=== PATIENT | female | born 1975 | race Caucasian/White ===

== ENCOUNTER 2021-04-26 02:08 | Inpatient (IN) | payer OTHER ==
[2021-04-26] MEDS ORDERED: SODIUM CHLORIDE 0.9% 500 ML INFUS.BAG IV ONE (02:40)
[2021-04-26] MEDS ORDERED: ONDANSETRON 4 MG/2 ML VIAL IVPUSH ONE (02:40)
[2021-04-26] MEDS ORDERED: LACTATED RINGERS SOLUTION 1000 ML INFUS.BAG IV ONE ×2 (02:53→05:28)
[2021-04-26] MEDS ORDERED: PROCHLORPERAZINE INJECTION 10 MG/2 ML VIAL IVPB ONE (02:55)
[2021-04-26] MEDS ORDERED: FOLIC ACID INJECTION - 1 MG, THIAMINE HCL 100 MG, MULTIVIT INJECTION ADULT 10 ML in SOD... IVPB ONE (03:05)
[2021-04-26 03:06] LABS: HEMATOCRIT 39.6 % (32.4-45.2); MCH 33.7 pg (25.7-33.7); MCHC 35.5 g/dl (32.0-36.0); MEAN PLT VOLUME 7.6 fl (7.5-11.1); PLATELET COUNT 383 10^3/uL (134-434); RBC 4.17 M/mm3 (3.60-5.2); WHITE BLOOD COUNT 21.7 K/mm3 (4.0-10.0)
[2021-04-26 03:07] LABS: VENOUS BASE EXCESS 2.4 mmol/L (-2-2); VENOUS O2 SATURATION 81.9 % (70-80); VENOUS PCO2 26.5 mmHg (38-52); VENOUS PH 7.559 (7.310-7.410)
[2021-04-26] MEDS ORDERED: SUCRALFATE 1 GM TABLET (FP) PO ONE (03:14)
[2021-04-26 03:20] LABS: CHLORIDE 92 mmol/L (98-107); SODIUM 131 mmol/L (136-145)
[2021-04-26] MEDS ORDERED: MAGNESIUM SULF 50% (8.12 MEQ/2 ML-1 GM VIAL) IVPB ONE (03:21)
[2021-04-26 03:22] LABS: CALCIUM 8.8 mg/dL (8.5-10.1)
[2021-04-26 03:23] LABS: ALBUMIN 3.2 g/dl (3.4-5.0); ANION GAP 16 MMOL/L (8-16); BLOOD UREA NITROGEN 7.2 mg/dL (7-18); CO2 23 mmol/L (21-32); GLUCOSE,RANDOM 116 mg/dL (74-106); LIPASE 74 U/L (73-393); MAGNESIUM 1.6 mg/dL (1.8-2.4)
[2021-04-26] MEDS ORDERED: SUCRALFATE 1 GM TABLET (FP) ONE (03:25)
[2021-04-26 03:26] LABS: CREATININE 1.1 mg/dL (0.55-1.3); SGOT/AST 62 U/L (15-37); SGPT/ALT 49 U/L (13-61)
[2021-04-26 03:28] LABS: TOT PROT 7.7 g/dl (6.4-8.2)
[2021-04-26 03:29] LABS: ALK PHOS 134 U/L (45-117)
[2021-04-26 03:38] LABS: LACTIC ACID 3.6 mmol/L (0.4-2.0)
[2021-04-26] MEDS ORDERED: MAGNESIUM SULFATE IN WATER 2 GM/50 ML IVPB IVPB ONE (03:41)
[2021-04-26] MEDS ORDERED: KCL 10 MEQ IVPB 10 MEQ/100 ML INFUS.BAG IVPB ONE ×3 (03:42→06:23)
[2021-04-26] MEDS ORDERED: POTASSIUM CHLORIDE TABS 20 MEQ TABLET.ER (FP) PO ONE ×2 (04:13→04:23)
[2021-04-26] MEDS: KCL 10 MEQ IVPB 10 MEQ/100 ML INFUS.BAG IVPB SCH ×3 (04:19→06:35)
[2021-04-26 04:30] LABS: PH,URINE 5.5 (5.0-8.0); URINE APPEARANCE CLEAR; URINE BILIRUBIN NEGATIVE (NEGATIVE); URINE COLOR ORANGE; URINE GLUCOSE (UA) NEGATIVE (NEGATIVE); URINE KETONE NEGATIVE (NEGATIVE); URINE LEUK ESTERASE NEGATIVE (NEGATIVE); URINE NITRITE NEGATIVE (NEGATIVE); URINE PROTEIN NEGATIVE (NEGATIVE)
[2021-04-26 07:15] LABS: CALCIUM 7.7 mg/dL (8.5-10.1)
[2021-04-26 07:16] LABS: BLOOD UREA NITROGEN 7.3 mg/dL (7-18)
[2021-04-26 07:19] LABS: CREATININE 0.7 mg/dL (0.55-1.3)
[2021-04-26 07:20] LABS: BILIRUBIN,TOTAL 1.8 mg/dL (0.2-1)
[2021-04-26 07:29] LABS: ALBUMIN 2.5 g/dl (3.4-5.0)
[2021-04-26] MEDS ORDERED: SODIUM CHLORIDE 1,000 ML IV STA (13:06)
[2021-04-26] MEDS ORDERED: ONDANSETRON 4 MG/2 ML VIAL IVPUSH PRN (13:37)
[2021-04-26] MEDS ORDERED: CEFTRIAXONE 1,000 MG in DEXTROSE 5%-WATER - 50 ML IVPB SCH (13:45)
[2021-04-26] MEDS ORDERED: CEFTRIAXONE 1 GM in DEXTROSE 5%-WATER - 50 ML IVPB SCH ×2 (14:47→14:48)
[2021-04-26] MEDS ORDERED: cefTRIAXone SODIUM 1 GM VIAL ONE (14:56)
[2021-04-26] MEDS ORDERED: DEXTROSE 5%-WATER - 50 ML IVPB ONE (14:56)
[2021-04-26] MEDS: CEFTRIAXONE 1 GM in DEXTROSE 5%-WATER - 50 ML IVPB SCH (15:02)
[2021-04-26] MEDS: LACTATED RINGERS SOLUTION 1,000 ML IV SCH (17:00)
[2021-04-26] MEDS: ALBUTEROL SO4 HFA INHALER IH SCH (21:24)
[2021-04-26] MEDS: ACETAMINOPHEN 325 MG TABLET (FP) PO PRN (21:58)
[2021-04-27 08:33] LABS: BLOOD UREA NITROGEN 3.6 mg/dL (7-18); CALCIUM 7.6 mg/dL (8.5-10.1)
[2021-04-27 08:34] LABS: MAGNESIUM 1.8 mg/dL (1.8-2.4)
[2021-04-27 08:36] LABS: CREATININE 0.6 mg/dL (0.55-1.3)
[2021-04-27 08:37] LABS: PHOSPHOROUS 2.6 mg/dL (2.5-4.9)
[2021-04-27 08:39] LABS: ALBUMIN 2.1 g/dl (3.4-5.0)
[2021-04-27 08:41] LABS: BILIRUBIN,DIRECT 0.5 mg/dL (0.0-0.2)
[2021-04-27 08:44] LABS: TOT PROT 5.3 g/dl (6.4-8.2)
[2021-04-27 08:53] LABS: BASO % 0.7 % (0-2.0); EOS % 1.8 % (0-4.5); HEMATOCRIT 28.7 % (32.4-45.2); HEMOGLOBIN 9.8 GM/dL (10.7-15.3); LYMPH % 20.9 % (8-40); MCH 34.4 pg (25.7-33.7); MCHC 34.2 g/dl (32.0-36.0); MEAN CELL VOLUME 100.7 fl (80-96); MEAN PLT VOLUME 7.4 fl (7.5-11.1); MONO % 8.9 % (3.8-10.2); NEUT % 67.7 % (42.8-82.8); PLATELET COUNT 207 10^3/uL (134-434); RBC 2.85 M/mm3 (3.60-5.2); RDW 13.9 % (11.6-15.6); WHITE BLOOD COUNT 4.4 K/mm3 (4.0-10.0)
[2021-04-27] MEDS ORDERED: cefTRIAXone SODIUM 1 GM VIAL ONE (09:07)
[2021-04-27] MEDS ORDERED: DEXTROSE 5%-WATER - 50 ML IVPB ONE (09:07)
[2021-04-27] MEDS: ENOXAPARIN NA (PORCINE) 40 MG/0.4 ML DISP.SYRIN SQ SCH (09:09)
[2021-04-27] MEDS: CEFTRIAXONE 1 GM in DEXTROSE 5%-WATER - 50 ML IVPB SCH (09:09)
[2021-04-27] MEDS: ALBUTEROL SO4 HFA INHALER IH SCH ×2 (09:10→21:18)
[2021-04-27] MEDS: ACETAMINOPHEN 325 MG TABLET (FP) PO PRN (09:55)
[2021-04-27] MEDS ORDERED: MAGNESIUM 1GM/D5W 100ML - 100 ML IVPB IVPB ONE (12:20)
[2021-04-27] MEDS: LACTATED RINGERS SOLUTION 1,000 ML IV SCH (17:44)
[2021-04-27] MEDS ORDERED: diphenhydrAMINE HCL 25 MG CAPSULE (FP) PO ONE (22:27)
[2021-04-28] MEDS: ACETAMINOPHEN 325 MG TABLET (FP) PO PRN ×2 (05:50→20:30)
[2021-04-28] MEDS: LEVOTHYROXINE NA 25 MCG TABLET (FP) PO SCH (06:02)
[2021-04-28 08:30] LABS: BASO % 0.7 % (0-2.0); HEMATOCRIT 27.8 % (32.4-45.2); HEMOGLOBIN 9.7 GM/dL (10.7-15.3); LYMPH % 15.1 % (8-40); MCH 34.4 pg (25.7-33.7); MCHC 34.7 g/dl (32.0-36.0); MEAN CELL VOLUME 99.2 fl (80-96); MEAN PLT VOLUME 8.1 fl (7.5-11.1); MONO % 8.2 % (3.8-10.2); PLATELET COUNT 208 10^3/uL (134-434); RDW 13.6 % (11.6-15.6); WHITE BLOOD COUNT 5.5 K/mm3 (4.0-10.0)
[2021-04-28] MEDS ORDERED: cefTRIAXone SODIUM 1 GM VIAL ONE (09:14)
[2021-04-28] MEDS ORDERED: DEXTROSE 5%-WATER - 50 ML IVPB ONE (09:14)
[2021-04-28] MEDS: ENOXAPARIN NA (PORCINE) 40 MG/0.4 ML DISP.SYRIN SQ SCH (09:18)
[2021-04-28 09:21] LABS: BLOOD UREA NITROGEN 5.2 mg/dL (7-18); CALCIUM 7.7 mg/dL (8.5-10.1)
[2021-04-28 09:22] LABS: ALBUMIN 2.1 g/dl (3.4-5.0); MAGNESIUM 1.8 mg/dL (1.8-2.4)
[2021-04-28 09:24] LABS: CREATININE 0.7 mg/dL (0.55-1.3)
[2021-04-28 09:26] LABS: BILIRUBIN,TOTAL 0.6 mg/dL (0.2-1); TOT PROT 5.1 g/dl (6.4-8.2)
[2021-04-28] MEDS: CEFTRIAXONE 1 GM in DEXTROSE 5%-WATER - 50 ML IVPB SCH (09:26)
[2021-04-28] MEDS: LACTATED RINGERS SOLUTION 1,000 ML IV SCH (09:27)
[2021-04-28] MEDS: ALBUTEROL SO4 HFA INHALER IH SCH ×2 (09:27→21:21)
[2021-04-28] MEDS: PANTOPRAZOLE 40 MG TABLET PO SCH (10:54)
[2021-04-28] MEDS: MAG HYDROX/ALH/SMC/DPHA/LIDO 240 ML MOUTHWASH MM SCH ×3 (12:01→23:33)
[2021-04-28] MEDS ORDERED: SIMETHICONE 80 MG TAB.CHEW (FP) PO ONE (20:19)
[2021-04-28 21:47] VITALS: BMI 31.1
[2021-04-28] MEDS ORDERED: diphenhydrAMINE HCL 25 MG CAPSULE (FP) PO ONE (23:46)
[2021-04-29] MEDS: LACTATED RINGERS SOLUTION 1,000 ML IV SCH (00:46)
[2021-04-29] MEDS: LEVOTHYROXINE NA 25 MCG TABLET (FP) PO SCH (06:07)
[2021-04-29] MEDS: MAG HYDROX/ALH/SMC/DPHA/LIDO 240 ML MOUTHWASH MM SCH (06:39)
[2021-04-29] MEDS ORDERED: DEXTROSE 5%-WATER - 50 ML IVPB ONE (09:28)
[2021-04-29] MEDS ORDERED: cefTRIAXone SODIUM 1 GM VIAL ONE (09:28)
[2021-04-29 09:56] LABS: HEMATOCRIT 29.8 % (32.4-45.2); HEMOGLOBIN 10.3 GM/dL (10.7-15.3); MCH 34.6 pg (25.7-33.7); MCHC 34.5 g/dl (32.0-36.0); MEAN CELL VOLUME 100.2 fl (80-96); MEAN PLT VOLUME 8.5 fl (7.5-11.1); PLATELET COUNT 222 10^3/uL (134-434); RBC 2.97 M/mm3 (3.60-5.2); RDW 13.8 % (11.6-15.6); WHITE BLOOD COUNT 5.9 K/mm3 (4.0-10.0)
[2021-04-29] MEDS ORDERED: SIMETHICONE 80 MG TAB.CHEW (FP) PO PRN (09:56)
[2021-04-29] MEDS ORDERED: MAG HYDROX/AL HYDROX/SIMETH 30 ML UNIT-DOSE CUP PO PRN (09:57)
[2021-04-29] MEDS ORDERED: MECLIZINE HCL 25 MG TABLET (FP) PO PRN (09:57)
[2021-04-29] MEDS ORDERED: MULTIVITAMINS THER W-MINERALS COMBO TABLET (FP) PO SCH (10:00)
[2021-04-29] MEDS: CEFTRIAXONE 1 GM in DEXTROSE 5%-WATER - 50 ML IVPB SCH (10:00)
[2021-04-29] MEDS: PANTOPRAZOLE 40 MG TABLET PO SCH (10:01)
[2021-04-29] MEDS: ENOXAPARIN NA (PORCINE) 40 MG/0.4 ML DISP.SYRIN SQ SCH (10:02)
[2021-04-29] MEDS: ALBUTEROL SO4 HFA INHALER IH SCH (10:02)
[2021-04-29 10:47] LABS: BLOOD UREA NITROGEN 5.7 mg/dL (7-18)
[2021-04-29 10:50] LABS: BILIRUBIN,TOTAL 0.8 mg/dL (0.2-1)
[2021-04-29 10:51] LABS: ALBUMIN 2.5 g/dl (3.4-5.0); CALCIUM 8.1 mg/dL (8.5-10.1); TOT PROT 5.8 g/dl (6.4-8.2)
[2021-04-29 10:52] LABS: MAGNESIUM 1.6 mg/dL (1.8-2.4)
[2021-04-29 10:55] LABS: CREATININE 0.6 mg/dL (0.55-1.3); PHOSPHOROUS 2.8 mg/dL (2.5-4.9)
[2021-04-29 14:12] VITALS: BP 124/81; PULSE 84; TEMP 98.8
== END 2021-04-29 17:42 | disposition home or self-care (01) | DRG 422 ==
LOC: JER 02:08 → JERBED 04:17 → J6S 09:42
PROVIDERS: ADMIT Internal Medicine
DX: E87.2 Acidosis (principal); E43 Unspecified severe protein-calorie malnutrition; E86.0 Dehydration; E87.3 Alkalosis; E87.8 Other disorders of electrolyte and fluid balance, not elsewhere classified; F50.9 Eating disorder, unspecified; D72.829 Elevated white blood cell count, unspecified; E03.9 Hypothyroidism, unspecified; F17.210 Nicotine dependence, cigarettes, uncomplicated; J45.909 Unspecified asthma, uncomplicated; R11.2 Nausea with vomiting, unspecified; R42 Dizziness and giddiness; R53.1 Weakness; K76.0 Fatty (change of) liver, not elsewhere classified; Z68.31 Body mass index [BMI] 31.0-31.9, adult
CPT/HCPCS: 36415; 71046-TC-FY; 76705-TC; 80048; 80053; 80076; 81003; 82550; 82803; 82962; 83605; 83690; 83735; 84100; 84439; 84443; 84481; 84484; 84703; 85025; 85027; 87040; 87086; 93005; 93010; 97116-GP; 97161-GP; 99285-25; C9803; U0003; U0005

== ENCOUNTER 2021-11-04 11:19 | Emergency (ER) | payer OTHER ==
[2021-11-04 11:50] VITALS: BMI 31.4
[2021-11-04 12:20] VITALS: TEMP 98.6
[2021-11-04] MEDS ORDERED: ACETAMINOPHEN 1000 MG/100 ML BAG IVPB ONE (12:40)
[2021-11-04] MEDS ORDERED: FAMOTIDINE 20 MG/50 ML IVPB 20 MG/50 ML MG IVPB ONE ×2 (13:00→13:21)
[2021-11-04] MEDS ORDERED: MAG HYDROX/AL HYDROX/SIMETH 30 ML UNIT-DOSE CUP PO ONE (13:00)
[2021-11-04] MEDS ORDERED: MAG HYDROX/AL HYDROX/SIMETH 30 ML UNIT-DOSE CUP ONE (13:21)
[2021-11-04] MEDS ORDERED: ACETAMINOPHEN INJECTION 100 ML IVPB ONE (13:21)
[2021-11-04 13:25] LABS: PH,URINE 5.5 (5.0-8.0); URINE APPEARANCE CLOUDY; URINE BILIRUBIN 1+ (NEGATIVE); URINE COLOR DK YELLOW; URINE GLUCOSE (UA) NEGATIVE (NEGATIVE); URINE KETONE TRACE (NEGATIVE); URINE LEUK ESTERASE NEGATIVE (NEGATIVE); URINE NITRITE NEGATIVE (NEGATIVE); URINE PROTEIN TRACE (NEGATIVE)
[2021-11-04 13:27] LABS: HCG,QUALITATIVE URINE Negative
[2021-11-04 13:48] LABS: BASO % 0.3 % (0-2.0); HEMATOCRIT 36.2 % (32.4-45.2); HEMOGLOBIN 12.4 GM/dL (10.7-15.3); LYMPH % 13.3 % (8-40); MCH 34.2 pg (25.7-33.7); MCHC 34.3 g/dl (32.0-36.0); MEAN CELL VOLUME 99.6 fl (80-96); MEAN PLT VOLUME 7.2 fl (7.5-11.1); MONO % 9.4 % (3.8-10.2); PLATELET COUNT 276 10^3/uL (134-434); RBC 3.63 M/mm3 (3.60-5.2)
[2021-11-04 13:49] LABS: CALCIUM 8.5 mg/dL (8.5-10.1)
[2021-11-04 13:50] LABS: ALBUMIN 2.8 g/dl (3.4-5.0); BLOOD UREA NITROGEN 6.4 mg/dL (7-18)
[2021-11-04 13:53] LABS: CREATININE 0.5 mg/dL (0.55-1.3)
[2021-11-04 13:55] LABS: BILIRUBIN,TOTAL 0.6 mg/dL (0.2-1); TOT PROT 6.5 g/dl (6.4-8.2)
[2021-11-04] MEDS ORDERED: SODIUM CHLORIDE 0.9% 500 ML INFUS.BAG IV ONE (15:53)
[2021-11-04] MEDS ORDERED: ACETAMINOPHEN 325 MG TABLET (FP) ONE (19:07)
[2021-11-04] MEDS ORDERED: ACETAMINOPHEN 325 MG TABLET (FP) PO ONE (19:07)
[2021-11-04 19:19] VITALS: BP 139/89; PULSE 90
== END 2021-11-04 19:20 | disposition home or self-care (01) ==
LOC: JER 11:19
PROC: 3E0333Z Introduction of Anti-inflammatory into Peripheral Vein, Percutaneous Approach (ICD-10-PCS; principal; 2021-11-04)
PROC: 3E033GC Introduction of Other Therapeutic Substance into Peripheral Vein, Percutaneous Approach (ICD-10-PCS; 2021-11-04)
DX: R10.10 Upper abdominal pain, unspecified (principal)
CPT/HCPCS: 36415; 71045-TC-FY; 80053; 81003; 84443; 84484; 84703; 85025; 87086; 93005; 93010; 99285-25

== ENCOUNTER 2022-02-02 14:16 | Inpatient (IN) | payer OTHER ==
[2022-02-02] MEDS ORDERED: FOLIC ACID INJECTION - 1 MG, THIAMINE HCL 100 MG, MULTIVIT INJECTION ADULT 10 ML in SOD... IVPB ONE (16:49)
[2022-02-02 16:50] LABS: BASO % 0.2 % (0-2.0); HEMATOCRIT 35.8 % (32.4-45.2); HEMOGLOBIN 12.6 GM/dL (10.7-15.3); LYMPH % 8.4 % (8-40); MCHC 35.2 g/dl (32.0-36.0); MEAN CELL VOLUME 99.7 fl (80-96); MEAN PLT VOLUME 7.7 fl (7.5-11.1); MONO % 9.3 % (3.8-10.2); NEUT % 81.1 % (42.8-82.8); PLATELET COUNT 282 10^3/uL (134-434); RDW 15.9 % (11.6-15.6); WHITE BLOOD COUNT 9.5 K/mm3 (4.0-10.0)
[2022-02-02 17:20] LABS: CHLORIDE 100 mmol/L (98-107); SODIUM 136 mmol/L (136-145)
[2022-02-02 17:22] LABS: ALBUMIN 2.4 g/dl (3.4-5.0); ANION GAP 9 MMOL/L (8-16); CALCIUM 7.7 mg/dL (8.5-10.1); CO2 27 mmol/L (21-32); GLUCOSE,RANDOM 77 mg/dL (74-106)
[2022-02-02 17:25] LABS: CREATININE 0.6 mg/dL (0.55-1.3)
[2022-02-02 17:26] LABS: SGOT/AST 120 U/L (15-37)
[2022-02-02 17:29] LABS: ALK PHOS 157 U/L (45-117); BILIRUBIN,TOTAL 1.7 mg/dL (0.2-1)
[2022-02-02 18:10] LABS: BLOOD UREA NITROGEN 2.2 mg/dL (7-18); SGPT/ALT 45 U/L (13-61)
[2022-02-02 18:12] LABS: MAGNESIUM 1.8 mg/dL (1.8-2.4)
[2022-02-02 18:24] LABS: EPI CELLS >36 /uL (0-25.1); HYALINE CASTS 16 /uL (0-3.1); URINE APPEARANCE TURBID; URINE BILIRUBIN 2+ (NEGATIVE); URINE COLOR RED; URINE GLUCOSE (UA) NEGATIVE (NEGATIVE); URINE KETONE NEGATIVE (NEGATIVE); URINE LEUK ESTERASE 3+ (NEGATIVE); URINE NITRITE POSITIVE (NEGATIVE); URINE PROTEIN 1+ (NEGATIVE); URINE WBC 1070 /uL (0-25.8)
[2022-02-02 18:33] LABS: LIPASE < 10 U/L (73-393)
[2022-02-02] MEDS ORDERED: CEFTRIAXONE 1,000 MG in DEXTROSE 5%-WATER - 50 ML IVPB ONE (18:38)
[2022-02-02] MEDS ORDERED: CEFTRIAXONE 1 GM/50 ML BAG ONE (18:49)
[2022-02-02 18:53] LABS: URINE BACTERIA 80 /uL (0-1359); URINE RBC 18328 /uL (0-23.9); YEAST PRESENT (NEGATIVE)
[2022-02-02 20:34] LABS: INR 1.21 (0.83-1.09); PROTHROMBIN TIME (PATIENT) 13.9 SEC (9.7-13.0)
[2022-02-02 20:37] LABS: ACTIVATED PTT 21.5 SECONDS (25.2-36.5)
[2022-02-02 20:41] LABS: CHLORIDE 102 mmol/L (98-107); SODIUM 140 mmol/L (136-145)
[2022-02-02 20:43] LABS: ANION GAP 13 MMOL/L (8-16); CALCIUM 7.6 mg/dL (8.5-10.1); CO2 25 mmol/L (21-32); GLUCOSE,RANDOM 74 mg/dL (74-106)
[2022-02-02 20:47] LABS: CREATININE 0.4 mg/dL (0.55-1.3); PHOSPHOROUS 2.5 mg/dL (2.5-4.9)
[2022-02-02 20:55] LABS: BLOOD UREA NITROGEN 2.4 mg/dL (7-18)
[2022-02-02] MEDS ORDERED: POTASSIUM CHLORIDE ORAL LIQUID 20 MEQ/15 ML PO ONE (21:11)
[2022-02-02] MEDS ORDERED: MAGNESIUM 1GM/D5W - 1 GM/100 ML IVPB IVPB ONE ×2 (21:11→22:15)
[2022-02-02] MEDS ORDERED: POTASSIUM CHLORIDE ORAL LIQUID 20 MEQ/15 ML ONE (22:15)
[2022-02-02] MEDS ORDERED: MINERAL OIL/PETROLAT/WATER TOPICAL CREAM 454 GM JAR TP PRN (22:26)
[2022-02-02] MEDS ORDERED: KCL 10 MEQ IVPB 20 MEQ/200 ML INFUS.BAG IVPB ONE (23:15)
[2022-02-02] MEDS: KCL 10 MEQ IVPB 10 MEQ/100 ML INFUS.BAG IVPB SCH (23:30)
[2022-02-03] MEDS ORDERED: CEFTRIAXONE 1,000 MG in DEXTROSE 5%-WATER - 50 ML IVPB ONE (01:39)
[2022-02-03] MEDS: diphenhydrAMINE HCL 25 MG CAPSULE (FP) PO PRN ×2 (02:03→23:45)
[2022-02-03] MEDS: KCL 10 MEQ IVPB 10 MEQ/100 ML INFUS.BAG IVPB SCH ×4 (02:06→20:23)
[2022-02-03 04:16] VITALS: BMI 29.4
[2022-02-03] MEDS ORDERED: CEFTRIAXONE 1 GM in DEXTROSE 5%-WATER - 50 ML IVPB ONE (06:00)
[2022-02-03] MEDS ORDERED: PNEUMOC 20-VAL CONJ-DIP CRM/PF 0.5 ML SYRINGE IM ONE (10:00)
[2022-02-03 10:05] LABS: BASO % 0.3 % (0-2.0); EOS % 2.2 % (0-4.5); HEMATOCRIT 32.8 % (32.4-45.2); HEMOGLOBIN 11.5 GM/dL (10.7-15.3); LYMPH % 8.6 % (8-40); MEAN PLT VOLUME 7.6 fl (7.5-11.1); MONO % 10.5 % (3.8-10.2); NEUT % 78.4 % (42.8-82.8); PLATELET COUNT 237 10^3/uL (134-434); RBC 3.28 M/mm3 (3.60-5.2); RDW 15.5 % (11.6-15.6); WHITE BLOOD COUNT 8.5 K/mm3 (4.0-10.0)
[2022-02-03 10:32] LABS: CHLORIDE 104 mmol/L (98-107); SODIUM 139 mmol/L (136-145)
[2022-02-03 10:37] LABS: CALCIUM 7.6 mg/dL (8.5-10.1)
[2022-02-03 10:38] LABS: ALBUMIN 2.4 g/dl (3.4-5.0); ANION GAP 10 MMOL/L (8-16); CO2 25 mmol/L (21-32); GLUCOSE,RANDOM 89 mg/dL (74-106)
[2022-02-03 10:40] LABS: PHOSPHOROUS 2.3 mg/dL (2.5-4.9); SGPT/ALT 43 U/L (13-61)
[2022-02-03 10:41] LABS: CREATININE 0.5 mg/dL (0.55-1.3); SGOT/AST 98 U/L (15-37)
[2022-02-03 10:42] LABS: BILIRUBIN,TOTAL 1.2 mg/dL (0.2-1); TOT PROT 6.4 g/dl (6.4-8.2)
[2022-02-03 10:43] LABS: ALK PHOS 158 U/L (45-117)
[2022-02-03] MEDS: predniSONE 20 MG TABLET (UD) PO SCH (11:00)
[2022-02-03] MEDS: MULTIVITAMINS (DAILY MVI) TABLET (FP) PO SCH (11:00)
[2022-02-03] MEDS ORDERED: POTASSIUM CHLORIDE ORAL LIQUID 20 MEQ/15 ML PO ONE (16:19)
[2022-02-03] MEDS ORDERED: KETOROLAC TROMETHAMINE 30 MG/1 ML VIAL IVPUSH PRN (16:25)
[2022-02-03] MEDS ORDERED: NAPH,MB-DB/K PH,MBDB POWDER PACKET PO ONE (19:33)
[2022-02-04] MEDS: LIOTHYRONINE SODIUM 5 MCG TABLET PO SCH (07:01)
[2022-02-04] MEDS: predniSONE 20 MG TABLET (UD) PO SCH (11:03)
[2022-02-04] MEDS: MULTIVITAMINS (DAILY MVI) TABLET (FP) PO SCH (11:03)
[2022-02-04] MEDS: CEFTRIAXONE 1 GM in DEXTROSE 5%-WATER - 50 ML IVPB SCH (11:03)
[2022-02-04] MEDS: LACTOBACILLUS ACIDOPHILUS 1 TABLET PO SCH (12:33)
[2022-02-04 18:52] VITALS: RESP 18
[2022-02-04] MEDS: SIMETHICONE 80 MG TAB.CHEW (FP) PO PRN (21:42)
[2022-02-05] MEDS: LIOTHYRONINE SODIUM 5 MCG TABLET PO SCH (06:12)
[2022-02-05] MEDS ORDERED: predniSONE 20 MG TABLET (UD) PO SCH ×3 (07:22→07:30)
[2022-02-05] MEDS: CEFTRIAXONE 1 GM in DEXTROSE 5%-WATER - 50 ML IVPB SCH (11:51)
[2022-02-05] MEDS: THIAMINE HCL 200 MG/2 ML VIAL IVPB SCH (11:51)
[2022-02-05] MEDS: predniSONE 10 MG TABLET (UD) PO SCH (11:52)
[2022-02-05] MEDS: LACTOBACILLUS ACIDOPHILUS 1 TABLET PO SCH (11:52)
[2022-02-05] MEDS: FOLIC ACID 1 MG TABLET (FP) PO SCH (11:52)
[2022-02-05] MEDS: MULTIVITAMINS (DAILY MVI) TABLET (FP) PO SCH (11:52)
[2022-02-05 12:57] LABS: HEMOGLOBIN 10.5 GM/dL (10.7-15.3); MCH 34.7 pg (25.7-33.7); MCHC 33.8 g/dl (32.0-36.0); MEAN CELL VOLUME 102.6 fl (80-96); PLATELET COUNT 215 10^3/uL (134-434); RBC 3.02 M/mm3 (3.60-5.2); RDW 16.3 % (11.6-15.6); WHITE BLOOD COUNT 9.6 K/mm3 (4.0-10.0)
[2022-02-05 13:22] LABS: CALCIUM 7.3 mg/dL (8.5-10.1)
[2022-02-05 13:23] LABS: MAGNESIUM 1.7 mg/dL (1.8-2.4)
[2022-02-05 13:25] LABS: ALBUMIN 2.4 g/dl (3.4-5.0); BLOOD UREA NITROGEN 4.1 mg/dL (7-18)
[2022-02-05 13:26] LABS: CREATININE 0.5 mg/dL (0.55-1.3)
[2022-02-05 13:27] LABS: BILIRUBIN,TOTAL 0.5 mg/dL (0.2-1)
[2022-02-05 13:28] LABS: TOT PROT 6.2 g/dl (6.4-8.2)
[2022-02-05 13:29] LABS: PHOSPHOROUS 2.5 mg/dL (2.5-4.9)
[2022-02-05] MEDS: SODIUM CHLORIDE 1,000 ML IV SCH ×2 (13:33→22:54)
[2022-02-05] MEDS: diphenhydrAMINE HCL 25 MG CAPSULE (FP) PO PRN (13:36)
[2022-02-05 13:56] LABS: ERYTHROCYTE SEDIMENTATION RATE 22 mm/hr (0-20)
[2022-02-05] MEDS: SIMETHICONE 80 MG TAB.CHEW (FP) PO PRN (22:54)
[2022-02-06] MEDS: LIOTHYRONINE SODIUM 5 MCG TABLET PO SCH (06:02)
[2022-02-06] MEDS ORDERED: SODIUM CHLORIDE 500 ML IV STA (06:06)
[2022-02-06] MEDS: SODIUM CHLORIDE 1,000 ML IV SCH (08:32)
[2022-02-06] MEDS: CEFTRIAXONE 1 GM in DEXTROSE 5%-WATER - 50 ML IVPB SCH (11:16)
[2022-02-06] MEDS: THIAMINE HCL 200 MG/2 ML VIAL IVPB SCH (11:16)
[2022-02-06] MEDS: LACTOBACILLUS ACIDOPHILUS 1 TABLET PO SCH (11:17)
[2022-02-06] MEDS: predniSONE 10 MG TABLET (UD) PO SCH (11:17)
[2022-02-06] MEDS: MULTIVITAMINS (DAILY MVI) TABLET (FP) PO SCH (11:18)
[2022-02-06] MEDS: FOLIC ACID 1 MG TABLET (FP) PO SCH (11:18)
[2022-02-06 14:28] VITALS: BP 106/63; PULSE 93; TEMP 98.6
[2022-02-08] MEDS ORDERED: predniSONE 10 MG TABLET (UD) PO SCH (10:00)
[2022-02-09] MEDS ORDERED: predniSONE 20 MG TABLET (UD) PO SCH (10:00)
[2022-02-11] MEDS ORDERED: predniSONE 10 MG TABLET (UD) PO SCH (10:00)
[2022-02-14] MEDS ORDERED: predniSONE 5 MG TABLET (UD) PO SCH (10:00)
== END 2022-02-06 18:14 | disposition home or self-care (01) | DRG 424 ==
LOC: JER 14:16 → JERBED 18:45 → J5S 02-03 01:51
PROVIDERS: ADMIT Hospitalist; ATTEND Internal Medicine
DX: E03.9 Hypothyroidism, unspecified (principal); J45.909 Unspecified asthma, uncomplicated; L30.9 Dermatitis, unspecified; G62.1 Alcoholic polyneuropathy; N39.0 Urinary tract infection, site not specified; B95.8 Unspecified staphylococcus as the cause of diseases classified elsewhere; K59.00 Constipation, unspecified; E87.8 Other disorders of electrolyte and fluid balance, not elsewhere classified; E87.3 Alkalosis; D72.829 Elevated white blood cell count, unspecified
CPT/HCPCS: 0241U-QW; 36415; 70450-TC; 71045-TC-FY; 72131-TC; 76705-TC; 80048; 80053; 81003; 82140; 82550; 82607; 82746; 83690; 83735; 84100; 84132; 84439; 84443; 84479; 84481; 84591; 85025; 85027; 85610; 85651; 85730; 86038; 86140; 86376; 87077; 87086; 90677; 93005; 93010; 97116-GP; 97162-GP; 99285-25

== ENCOUNTER 2022-09-21 10:33 | Inpatient (IN) | payer OTHER ==
[2022-09-21] MEDS ORDERED: HYDROmorphone HCl 2 MG/ML VIAL IVPUSH ONE (11:30)
[2022-09-21] MEDS ORDERED: HYDROmorphone HCl 2 MG/ML VIAL ONE (12:00)
[2022-09-21 12:35] LABS: BASO % 0.4 % (0-2.0); EOS % 0.6 % (0-4.5); HEMOGLOBIN 12.1 GM/dL (10.7-15.3); LYMPH % 5.6 % (8-40); MCH 33.7 pg (25.7-33.7); MCHC 34.7 g/dl (32.0-36.0); MEAN CELL VOLUME 97.2 fl (80-96); MEAN PLT VOLUME 7.4 fl (7.5-11.1); MONO % 10.9 % (3.8-10.2); NEUT % 82.5 % (42.8-82.8); PLATELET COUNT 390 10^3/uL (134-434); RDW 14.8 % (11.6-15.6)
[2022-09-21 12:41] LABS: INR 1.32 (0.83-1.09); PROTHROMBIN TIME (PATIENT) 15.3 SEC (9.7-13.0)
[2022-09-21 12:53] LABS: CHLORIDE 99 mmol/L (98-107); SODIUM 136 mmol/L (136-145)
[2022-09-21 12:56] LABS: ALBUMIN 2.4 g/dl (3.4-5.0); CALCIUM 8.3 mg/dL (8.5-10.1); CO2 29 mmol/L (21-32); GLUCOSE,RANDOM 97 mg/dL (74-106); MAGNESIUM 2.1 mg/dL (1.8-2.4)
[2022-09-21 12:59] LABS: CREATININE 0.6 mg/dL (0.55-1.3); PHOSPHOROUS 2.2 mg/dL (2.5-4.9); SGPT/ALT 22 U/L (13-61)
[2022-09-21 13:00] LABS: SGOT/AST 65 U/L (15-37)
[2022-09-21 13:01] LABS: BILIRUBIN,TOTAL 2.8 mg/dL (0.2-1); TOT PROT 7.8 g/dl (6.4-8.2)
[2022-09-21 13:02] LABS: ALK PHOS 198 U/L (45-117)
[2022-09-21 13:18] LABS: ANION GAP 8 MMOL/L (8-16); BLOOD UREA NITROGEN 2.1 mg/dL (7-18)
[2022-09-21] MEDS ORDERED: POTASSIUM CHLORIDE ORAL LIQUID 20 MEQ/15 ML PO ONE (13:20)
[2022-09-21] MEDS ORDERED: POTASSIUM CHLORIDE ORAL LIQUID 20 MEQ/15 ML ONE (13:25)
[2022-09-21] MEDS: KCL 10 MEQ IVPB 10 MEQ/100 ML INFUS.BAG IVPB SCH ×3 (13:30→16:00)
[2022-09-21] MEDS ORDERED: KCL 10 MEQ IVPB 10 MEQ/100 ML INFUS.BAG IVPB ONE (15:53)
[2022-09-21] MEDS ORDERED: ALBUTEROL SO4 HFA INHALER IH PRN (16:04)
[2022-09-21] MEDS ORDERED: ONDANSETRON 4 MG/2 ML VIAL IVPUSH PRN (16:05)
[2022-09-21] MEDS ORDERED: CLOBETASOL PROPIONATE TP SCH (16:30)
[2022-09-21] MEDS: LACTATED RINGERS SOLUTION 1,000 ML/1,000 ML INFUS.BAG IV SCH (17:32)
[2022-09-21 18:51] LABS: BILIRUBIN,DIRECT 2.1 mg/dL (0.0-0.2)
[2022-09-21 20:04] LABS: URINE APPEARANCE TURBID; URINE BILIRUBIN 2+ (NEGATIVE); URINE COLOR DK YELLOW; URINE GLUCOSE (UA) NEGATIVE (NEGATIVE); URINE KETONE NEGATIVE (NEGATIVE); URINE LEUK ESTERASE 3+ (NEGATIVE); URINE NITRITE POSITIVE (NEGATIVE); URINE PROTEIN 1+ (NEGATIVE); URINE UROBILINOGEN 4.0 E.U/dl mg/dL (0.2-1.0)
[2022-09-21 22:56] LABS: URINE RBC 227.8 /uL (0-23.9)
[2022-09-21 22:57] LABS: HYALINE CASTS 10.64 /uL (0-3.1); URINE BACTERIA 8495.5 /uL (0-1359); URINE WBC 564.7 /uL (0-25.8); YEAST NEGATIVE (NEGATIVE)
[2022-09-21] MEDS ORDERED: diphenhydrAMINE HCL 25 MG CAPSULE (FP) PO ONE (23:50)
[2022-09-22] MEDS ORDERED: diphenhydrAMINE HCL 25 MG CAPSULE (FP) PO ONE (00:15)
[2022-09-22] MEDS: CEFTRIAXONE 1 GM in DEXTROSE 5%-WATER - 50 ML IVPB SCH ×2 (03:23→09:46)
[2022-09-22] MEDS: LACTATED RINGERS SOLUTION 1,000 ML/1,000 ML INFUS.BAG IV SCH ×3 (06:24→16:28)
[2022-09-22] MEDS ORDERED: LIOTHYRONINE SODIUM 5 MCG TABLET PO SCH (07:00)
[2022-09-22] MEDS ORDERED: ACETAMINOPHEN 325 MG TABLET (FP) PO PRN (09:57)
[2022-09-22 12:39] LABS: BASO % 0.4 % (0-2.0); EOS % 1.5 % (0-4.5); HEMATOCRIT 31.7 % (32.4-45.2); LYMPH % 9.3 % (8-40); MCHC 34.7 g/dl (32.0-36.0); MEAN CELL VOLUME 98.1 fl (80-96); MEAN PLT VOLUME 7.7 fl (7.5-11.1); NEUT % 76.8 % (42.8-82.8); PLATELET COUNT 324 10^3/uL (134-434); RBC 3.23 M/mm3 (3.60-5.2); RDW 14.8 % (11.6-15.6); WHITE BLOOD COUNT 8.3 K/mm3 (4.0-10.0)
[2022-09-22 13:04] LABS: CHLORIDE 104 mmol/L (98-107); SODIUM 136 mmol/L (136-145)
[2022-09-22 13:10] LABS: ALBUMIN 1.9 g/dl (3.4-5.0); ANION GAP 8 MMOL/L (8-16); CO2 24 mmol/L (21-32); GLUCOSE,RANDOM 80 mg/dL (74-106)
[2022-09-22 13:11] LABS: BLOOD UREA NITROGEN < 1.0 mg/dL (7-18); SGPT/ALT 23 U/L (13-61)
[2022-09-22 13:13] LABS: CREATININE 0.6 mg/dL (0.55-1.3); TOT PROT 6.7 g/dl (6.4-8.2)
[2022-09-22 13:14] LABS: BILIRUBIN,TOTAL 1.5 mg/dL (0.2-1); SGOT/AST 74 U/L (15-37)
[2022-09-22 13:25] LABS: ALK PHOS 161 U/L (45-117)
[2022-09-22 16:18] LABS: PHOSPHOROUS 2.2 mg/dL (2.5-4.9)
[2022-09-22] MEDS ORDERED: POTASSIUM CHLORIDE ORAL LIQUID 20 MEQ/15 ML PO ONE (16:40)
[2022-09-23] MEDS: LACTATED RINGERS SOLUTION 1,000 ML/1,000 ML INFUS.BAG IV SCH (02:54)
[2022-09-23] MEDS: LIOTHYRONINE SODIUM 5 MCG TABLET PO SCH (07:34)
[2022-09-23 07:55] LABS: BASO % 0.6 % (0-2.0); EOS % 1.6 % (0-4.5); HEMATOCRIT 33.3 % (32.4-45.2); HEMOGLOBIN 11.6 GM/dL (10.7-15.3); LYMPH % 10.4 % (8-40); MCH 34.2 pg (25.7-33.7); MCHC 34.9 g/dl (32.0-36.0); MEAN CELL VOLUME 98.1 fl (80-96); MEAN PLT VOLUME 7.9 fl (7.5-11.1); MONO % 10.5 % (3.8-10.2); NEUT % 76.9 % (42.8-82.8); PLATELET COUNT 375 10^3/uL (134-434); RBC 3.39 M/mm3 (3.60-5.2); RDW 15.1 % (11.6-15.6)
[2022-09-23 08:53] LABS: CHLORIDE 107 mmol/L (98-107); SODIUM 136 mmol/L (136-145)
[2022-09-23 09:02] LABS: ALBUMIN 2.1 g/dl (3.4-5.0); ANION GAP 7 MMOL/L (8-16); BLOOD UREA NITROGEN < 1.0 mg/dL (7-18); CALCIUM 7.9 mg/dL (8.5-10.1); CO2 22 mmol/L (21-32); GLUCOSE,RANDOM 80 mg/dL (74-106); MAGNESIUM 1.7 mg/dL (1.8-2.4)
[2022-09-23 09:04] LABS: CREATININE 0.5 mg/dL (0.55-1.3); SGOT/AST 95 U/L (15-37)
[2022-09-23 09:06] LABS: PHOSPHOROUS 2.1 mg/dL (2.5-4.9); SGPT/ALT 24 U/L (13-61)
[2022-09-23 09:07] LABS: ALK PHOS 180 U/L (45-117); BILIRUBIN,TOTAL 1.9 mg/dL (0.2-1); TOT PROT 7.2 g/dl (6.4-8.2)
[2022-09-23] MEDS: CEFTRIAXONE 1 GM in DEXTROSE 5%-WATER - 50 ML IVPB SCH (10:04)
[2022-09-23] MEDS: KETOROLAC TROMETHAMINE 15 MG/ML VIAL IVPUSH PRN ×2 (14:16→21:33)
[2022-09-23 15:20] VITALS: BMI 28.1
[2022-09-23] MEDS ORDERED: NAPH,MB-DB/K PH,MBDB POWDER PACKET PO ONE (15:26)
[2022-09-23] MEDS ORDERED: MAGNESIUM SULF 50% (8.12 MEQ/2 ML-1 GM VIAL) IVPB ONE (15:26)
[2022-09-23] MEDS: THIAMINE HCL 200 MG/2 ML VIAL IVPB SCH (15:41)
[2022-09-23] MEDS ORDERED: POLYETHYLENE GLYCOL (HEALTHYLAX) 3350 17 GM PACKET PO SCH (16:45)
[2022-09-23] MEDS ORDERED: PHYTONADIONE 10 MG/1 ML AMP IVPB ONE (16:45)
[2022-09-23 21:07] LABS: GAMMA GLUTAMYL TRANSPEPTIDASE 344 U/L (5-85)
[2022-09-23] MEDS: POTASSIUM CHLORIDE 40 MEQ in SODIUM CHLORIDE 1,000 ML IV SCH (21:33)
[2022-09-23] MEDS: POLYETHYLENE GLYCOL (HEALTHYLAX) 3350 17 GM PACKET PO SCH (21:33)
[2022-09-23] MEDS: MAGNESIUM OXIDE 400 MG TABLET (FP) PO SCH (21:33)
[2022-09-23] MEDS ORDERED: SENNOSIDES/DOCUSATE COMBO (SENNA PLUS) TABLET (UD) PO SCH (22:00)
[2022-09-24] MEDS: LIOTHYRONINE SODIUM 5 MCG TABLET PO SCH (06:45)
[2022-09-24 08:27] LABS: BASO % 0.4 % (0-2.0); EOS % 1.7 % (0-4.5); HEMATOCRIT 30.4 % (32.4-45.2); HEMOGLOBIN 10.7 GM/dL (10.7-15.3); LYMPH % 7.1 % (8-40); MCH 34.6 pg (25.7-33.7); MCHC 35.2 g/dl (32.0-36.0); MEAN CELL VOLUME 98.4 fl (80-96); MEAN PLT VOLUME 7.8 fl (7.5-11.1); MONO % 8.9 % (3.8-10.2); NEUT % 81.9 % (42.8-82.8); PLATELET COUNT 338 10^3/uL (134-434); RBC 3.09 M/mm3 (3.60-5.2); RDW 15.4 % (11.6-15.6)
[2022-09-24 08:56] LABS: CHLORIDE 109 mmol/L (98-107); SODIUM 140 mmol/L (136-145)
[2022-09-24 08:58] LABS: ANION GAP 7 MMOL/L (8-16); CALCIUM 7.7 mg/dL (8.5-10.1); CO2 25 mmol/L (21-32)
[2022-09-24 08:59] LABS: GLUCOSE,RANDOM 89 mg/dL (74-106)
[2022-09-24 09:01] LABS: PHOSPHOROUS 2.5 mg/dL (2.5-4.9)
[2022-09-24 09:02] LABS: CREATININE 0.5 mg/dL (0.55-1.3); SGOT/AST 99 U/L (15-37); SGPT/ALT 26 U/L (13-61)
[2022-09-24 09:03] LABS: BILIRUBIN,TOTAL 1.3 mg/dL (0.2-1); TOT PROT 6.9 g/dl (6.4-8.2)
[2022-09-24 09:04] LABS: ALK PHOS 175 U/L (45-117); IRON SERUM 38 ug/dL (50-175); TOTAL IRON BINDING CAPACITY 128 ug/dL (250-450)
[2022-09-24 10:03] LABS: BLOOD UREA NITROGEN 1.9 mg/dL (7-18)
[2022-09-24] MEDS: CEFTRIAXONE 1 GM in DEXTROSE 5%-WATER - 50 ML IVPB SCH (10:03)
[2022-09-24] MEDS: THIAMINE HCL 200 MG/2 ML VIAL IVPB SCH (10:05)
[2022-09-24] MEDS: POLYETHYLENE GLYCOL (HEALTHYLAX) 3350 17 GM PACKET PO SCH ×2 (10:05→21:33)
[2022-09-24] MEDS: MAGNESIUM OXIDE 400 MG TABLET (FP) PO SCH ×2 (10:06→21:45)
[2022-09-24 12:15] LABS: CHOLESTEROL 105 mg/dL (50-200); LDL CHOLESTEROL (ONLY SJRH) 62 mg/dL (5-100)
[2022-09-24 12:17] LABS: HDL CHOLESTEROL 23 mg/dL (40-60)
[2022-09-24 16:08] LABS: ATYPICAL pANCA <1:20 titer (Neg:<1:20); C-ANCA <1:20 titer (Neg:<1:20)
[2022-09-24] MEDS: KETOROLAC TROMETHAMINE 15 MG/ML VIAL IVPUSH PRN ×2 (16:35→23:45)
[2022-09-24] MEDS: POTASSIUM CHLORIDE 40 MEQ in SODIUM CHLORIDE 1,000 ML IV SCH (17:11)
[2022-09-24] MEDS: POTASSIUM CHLORIDE 20 MEQ in AMINO ACIDS 4.25%/D5W 1,000 ML IV SCH (21:33)
[2022-09-24] MEDS ORDERED: ALBUTEROL SO4 HFA INHALER IH PRN (23:34)
[2022-09-25] MEDS: LIOTHYRONINE SODIUM 5 MCG TABLET PO SCH (07:05)
[2022-09-25 08:39] LABS: BASO % 0.8 % (0-2.0); EOS % 2.1 % (0-4.5); HEMATOCRIT 28.2 % (32.4-45.2); HEMOGLOBIN 9.4 GM/dL (10.7-15.3); LYMPH % 7.2 % (8-40); MCHC 33.4 g/dl (32.0-36.0); MEAN CELL VOLUME 98.7 fl (80-96); MEAN PLT VOLUME 7.2 fl (7.5-11.1); NEUT % 80.9 % (42.8-82.8); PLATELET COUNT 267 10^3/uL (134-434); RBC 2.85 M/mm3 (3.60-5.2); RDW 15.1 % (11.6-15.6); WHITE BLOOD COUNT 8.1 K/mm3 (4.0-10.0)
[2022-09-25 09:00] LABS: ALBUMIN 1.8 g/dl (3.4-5.0); CALCIUM 7.4 mg/dL (8.5-10.1)
[2022-09-25 09:03] LABS: CREATININE 0.4 mg/dL (0.55-1.3); PHOSPHOROUS 1.9 mg/dL (2.5-4.9)
[2022-09-25 09:05] LABS: BILIRUBIN,TOTAL 1.2 mg/dL (0.2-1); TOT PROT 6.3 g/dl (6.4-8.2)
[2022-09-25] MEDS: CEFTRIAXONE 1 GM in DEXTROSE 5%-WATER - 50 ML IVPB SCH (10:18)
[2022-09-25] MEDS: MAGNESIUM OXIDE 400 MG TABLET (FP) PO SCH (10:18)
[2022-09-25] MEDS: THIAMINE HCL 200 MG/2 ML VIAL IVPB SCH (10:19)
[2022-09-25] MEDS: POLYETHYLENE GLYCOL (HEALTHYLAX) 3350 17 GM PACKET PO SCH ×2 (10:19→21:05)
[2022-09-25] MEDS: NAPH,MB-DB/K PH,MBDB POWDER PACKET PO SCH (10:19)
[2022-09-25] MEDS ORDERED: ALBUTEROL SO4 HFA INHALER IH ONE (12:47)
[2022-09-25 17:07] LABS: GLIADIN ANTIBODY IGA 10 units (0-19); GLIADIN ANTIBODY IGG 4 units (0-19); TRANSGLUTAMINASE IGG 7 U/mL (0-5)
[2022-09-25] MEDS: POTASSIUM CHLORIDE 20 MEQ in AMINO ACIDS 4.25%/D5W 1,000 ML IV SCH (21:50)
[2022-09-25] MEDS: KETOROLAC TROMETHAMINE 15 MG/ML VIAL IVPUSH PRN (21:59)
[2022-09-26] MEDS: LIOTHYRONINE SODIUM 5 MCG TABLET PO SCH (06:16)
[2022-09-26 08:35] LABS: ALBUMIN 1.9 g/dl (3.4-5.0); BLOOD UREA NITROGEN 5.3 mg/dL (7-18); CALCIUM 7.7 mg/dL (8.5-10.1)
[2022-09-26 08:39] LABS: CREATININE 0.4 mg/dL (0.55-1.3)
[2022-09-26 08:40] LABS: BILIRUBIN,TOTAL 1.1 mg/dL (0.2-1); TOT PROT 6.2 g/dl (6.4-8.2)
[2022-09-26 09:00] LABS: BASO % 0.5 % (0-2.0); HEMATOCRIT 25.9 % (32.4-45.2); HEMOGLOBIN 9.1 GM/dL (10.7-15.3); LYMPH % 9.4 % (8-40); MCH 34.7 pg (25.7-33.7); MCHC 35.1 g/dl (32.0-36.0); MEAN CELL VOLUME 98.7 fl (80-96); MEAN PLT VOLUME 8.2 fl (7.5-11.1); MONO % 9.4 % (3.8-10.2); NEUT % 78.7 % (42.8-82.8); PLATELET COUNT 234 10^3/uL (134-434); RBC 2.63 M/mm3 (3.60-5.2); RDW 15.1 % (11.6-15.6)
[2022-09-26] MEDS: CEFTRIAXONE 1 GM in DEXTROSE 5%-WATER - 50 ML IVPB SCH (09:29)
[2022-09-26] MEDS: NAPH,MB-DB/K PH,MBDB POWDER PACKET PO SCH (09:29)
[2022-09-26] MEDS: THIAMINE HCL 200 MG/2 ML VIAL IVPB SCH (09:29)
[2022-09-26] MEDS: POLYETHYLENE GLYCOL (HEALTHYLAX) 3350 17 GM PACKET PO SCH ×2 (11:28→21:18)
[2022-09-26] MEDS ORDERED: morphine CARPU-JECT 2 MG/1 ML DISP.SYRIN IVPUSH PRN (15:08)
[2022-09-26 16:35] LABS: HEMATOCRIT 28.6 % (32.4-45.2); HEMOGLOBIN 9.7 GM/dL (10.7-15.3); MCH 33.8 pg (25.7-33.7); MEAN CELL VOLUME 99.4 fl (80-96); MEAN PLT VOLUME 7.7 fl (7.5-11.1); PLATELET COUNT 268 10^3/uL (134-434); RBC 2.88 M/mm3 (3.60-5.2); RDW 15.4 % (11.6-15.6); WHITE BLOOD COUNT 7.3 K/mm3 (4.0-10.0)
[2022-09-26 16:57] LABS: BLOOD UREA NITROGEN 5.1 mg/dL (7-18)
[2022-09-26 17:00] LABS: CREATININE 0.6 mg/dL (0.55-1.3)
[2022-09-26] MEDS: D5-1/2NS+10 MEQ KCL - 10 MEQ/1,000 ML INFUS.BAG IV SCH (17:06)
[2022-09-26] MEDS: PANTOPRAZOLE SODIUM 40 MG VIAL IVPUSH SCH (21:18)
[2022-09-26] MEDS: MELATONIN 5 MG TABLETS PO PRN (23:19)
[2022-09-27] MEDS: LIOTHYRONINE SODIUM 5 MCG TABLET PO SCH (06:17)
[2022-09-27 09:11] LABS: BASO % 0.5 % (0-2.0); EOS % 2.6 % (0-4.5); HEMATOCRIT 26.4 % (32.4-45.2); HEMOGLOBIN 9.2 GM/dL (10.7-15.3); LYMPH % 12.6 % (8-40); MCH 34.6 pg (25.7-33.7); MEAN CELL VOLUME 98.8 fl (80-96); MEAN PLT VOLUME 8.1 fl (7.5-11.1); MONO % 10.8 % (3.8-10.2); NEUT % 73.5 % (42.8-82.8); PLATELET COUNT 259 10^3/uL (134-434); RBC 2.67 M/mm3 (3.60-5.2); RDW 15.3 % (11.6-15.6); WHITE BLOOD COUNT 5.8 K/mm3 (4.0-10.0)
[2022-09-27 09:17] LABS: INR 1.28 (0.83-1.09); PROTHROMBIN TIME (PATIENT) 14.8 SEC (9.7-13.0)
[2022-09-27] MEDS: CEFTRIAXONE 1 GM in DEXTROSE 5%-WATER - 50 ML IVPB SCH (09:26)
[2022-09-27] MEDS: PANTOPRAZOLE SODIUM 40 MG VIAL IVPUSH SCH ×2 (09:26→23:37)
[2022-09-27] MEDS: THIAMINE HCL 200 MG/2 ML VIAL IVPB SCH (09:26)
[2022-09-27 09:32] LABS: BLOOD UREA NITROGEN 4.3 mg/dL (7-18); CALCIUM 7.9 mg/dL (8.5-10.1); MAGNESIUM 1.6 mg/dL (1.8-2.4)
[2022-09-27 09:35] LABS: PHOSPHOROUS 3.2 mg/dL (2.5-4.9)
[2022-09-27 09:36] LABS: CREATININE 0.4 mg/dL (0.55-1.3)
[2022-09-27 09:37] LABS: BILIRUBIN,TOTAL 1.1 mg/dL (0.2-1); TOT PROT 6.4 g/dl (6.4-8.2)
[2022-09-27] MEDS: POLYETHYLENE GLYCOL (HEALTHYLAX) 3350 17 GM PACKET PO SCH ×2 (12:41→22:09)
[2022-09-27] MEDS: D5-1/2NS+10 MEQ KCL - 10 MEQ/1,000 ML INFUS.BAG IV SCH (12:48)
[2022-09-28] MEDS: MELATONIN 5 MG TABLETS PO PRN ×2 (00:03→21:04)
[2022-09-28] MEDS: LIOTHYRONINE SODIUM 5 MCG TABLET PO SCH (06:25)
[2022-09-28] MEDS: PANTOPRAZOLE SODIUM 40 MG VIAL IVPUSH SCH ×2 (09:36→21:04)
[2022-09-28] MEDS: POLYETHYLENE GLYCOL (HEALTHYLAX) 3350 17 GM PACKET PO SCH ×2 (09:46→21:08)
[2022-09-28] MEDS: THIAMINE HCL 200 MG/2 ML VIAL IVPB SCH (09:47)
[2022-09-28] MEDS: FOLIC ACID 1 MG TABLET (FP) PO SCH (13:23)
[2022-09-28] MEDS: predniSONE 20 MG TABLET (UD) PO SCH (18:44)
[2022-09-28] MEDS: diphenhydrAMINE HCL 25 MG CAPSULE (FP) PO PRN (21:08)
[2022-09-29] MEDS: LIOTHYRONINE SODIUM 5 MCG TABLET PO SCH (06:03)
[2022-09-29 09:13] LABS: HEMATOCRIT 27.2 % (32.4-45.2); HEMOGLOBIN 9.4 GM/dL (10.7-15.3); MCH 34.2 pg (25.7-33.7); MCHC 34.4 g/dl (32.0-36.0); MEAN CELL VOLUME 99.2 fl (80-96); MEAN PLT VOLUME 8.1 fl (7.5-11.1); PLATELET COUNT 255 10^3/uL (134-434); RBC 2.74 M/mm3 (3.60-5.2); RDW 15.3 % (11.6-15.6); WHITE BLOOD COUNT 4.8 K/mm3 (4.0-10.0)
[2022-09-29] MEDS: predniSONE 20 MG TABLET (UD) PO SCH (09:20)
[2022-09-29] MEDS: FOLIC ACID 1 MG TABLET (FP) PO SCH (09:20)
[2022-09-29 09:30] LABS: CALCIUM 8.4 mg/dL (8.5-10.1)
[2022-09-29 09:31] LABS: BLOOD UREA NITROGEN 4.9 mg/dL (7-18); MAGNESIUM 1.5 mg/dL (1.8-2.4)
[2022-09-29 09:34] LABS: CREATININE 0.4 mg/dL (0.55-1.3); PHOSPHOROUS 3.5 mg/dL (2.5-4.9)
[2022-09-29 09:35] LABS: TOT PROT 6.6 g/dl (6.4-8.2)
[2022-09-29] MEDS ORDERED: PEG 3350/NA SULF BICARB CL/KCL 4000 ML SOLN.RECON PO ONE (10:00)
[2022-09-29] MEDS: POLYETHYLENE GLYCOL (HEALTHYLAX) 3350 17 GM PACKET PO SCH ×2 (11:39→21:03)
[2022-09-29] MEDS: PANTOPRAZOLE SODIUM 40 MG VIAL IVPUSH SCH (11:56)
[2022-09-29 15:07] LABS: ALBUMIN % 25.6 % (.); ALPHA-1 FOR UPE 6.7 % (.)
[2022-09-29] MEDS: diphenhydrAMINE HCL 25 MG CAPSULE (FP) PO PRN ×2 (15:25→22:59)
[2022-09-29] MEDS ORDERED: BISACODYL 5 MG TABLET.DR (FP) PO ONE (20:00)
[2022-09-29] MEDS: PANTOPRAZOLE 40 MG TABLET PO SCH (21:03)
[2022-09-30] MEDS ORDERED: TRIMETHOBENZAMIDE HCL 200MG/2ML INJ IM ONE (01:50)
[2022-09-30] MEDS: LIOTHYRONINE SODIUM 5 MCG TABLET PO SCH (06:02)
[2022-09-30 09:26] LABS: BASO % 0.2 % (0-2.0); EOS % 1.2 % (0-4.5); HEMATOCRIT 29.6 % (32.4-45.2); HEMOGLOBIN 10.2 GM/dL (10.7-15.3); MCH 33.9 pg (25.7-33.7); MCHC 34.6 g/dl (32.0-36.0); MEAN CELL VOLUME 97.9 fl (80-96); MEAN PLT VOLUME 7.8 fl (7.5-11.1); MONO % 10.4 % (3.8-10.2); NEUT % 74.2 % (42.8-82.8); PLATELET COUNT 345 10^3/uL (134-434); RBC 3.03 M/mm3 (3.60-5.2); RDW 15.3 % (11.6-15.6); WHITE BLOOD COUNT 7.4 K/mm3 (4.0-10.0)
[2022-09-30 09:30] LABS: INR 1.27 (0.83-1.09); PROTHROMBIN TIME (PATIENT) 14.7 SEC (9.7-13.0)
[2022-09-30] MEDS: predniSONE 20 MG TABLET (UD) PO SCH (09:39)
[2022-09-30] MEDS: FOLIC ACID 1 MG TABLET (FP) PO SCH (09:39)
[2022-09-30] MEDS: PANTOPRAZOLE 40 MG TABLET PO SCH ×2 (09:39→22:00)
[2022-09-30] MEDS: POLYETHYLENE GLYCOL (HEALTHYLAX) 3350 17 GM PACKET PO SCH ×3 (09:39→22:00)
[2022-09-30 10:00] LABS: CALCIUM 8.7 mg/dL (8.5-10.1)
[2022-09-30 10:01] LABS: ALBUMIN 2.4 g/dl (3.4-5.0); BLOOD UREA NITROGEN 5.9 mg/dL (7-18)
[2022-09-30 10:04] LABS: CREATININE 0.5 mg/dL (0.55-1.3)
[2022-09-30 13:20] VITALS: RESP 18
[2022-09-30] MEDS: diphenhydrAMINE HCL 25 MG CAPSULE (FP) PO PRN ×2 (13:48→23:30)
[2022-10-01] MEDS: LIOTHYRONINE SODIUM 5 MCG TABLET PO SCH (06:06)
[2022-10-01] MEDS: FOLIC ACID 1 MG TABLET (FP) PO SCH (10:20)
[2022-10-01] MEDS: predniSONE 20 MG TABLET (UD) PO SCH (10:21)
[2022-10-01] MEDS: PANTOPRAZOLE 40 MG TABLET PO SCH (10:21)
[2022-10-01] MEDS: POLYETHYLENE GLYCOL (HEALTHYLAX) 3350 17 GM PACKET PO SCH ×2 (10:21→21:08)
[2022-10-01 16:03] LABS: ALBUMIN 2.1 g/dl (3.4-5.0); BLOOD UREA NITROGEN 5.2 mg/dL (7-18); CALCIUM 7.6 mg/dL (8.5-10.1)
[2022-10-01 16:06] LABS: CREATININE 0.6 mg/dL (0.55-1.3)
[2022-10-01 16:08] LABS: BILIRUBIN,TOTAL 0.7 mg/dL (0.2-1); TOT PROT 6.3 g/dl (6.4-8.2)
[2022-10-01] MEDS: diphenhydrAMINE HCL 25 MG CAPSULE (FP) PO PRN (21:10)
[2022-10-01] MEDS: MELATONIN 5 MG TABLETS PO PRN (21:10)
[2022-10-02] MEDS: LIOTHYRONINE SODIUM 5 MCG TABLET PO SCH (06:27)
[2022-10-02] MEDS: predniSONE 20 MG TABLET (UD) PO SCH (09:41)
[2022-10-02] MEDS: FOLIC ACID 1 MG TABLET (FP) PO SCH (09:41)
[2022-10-02] MEDS: POLYETHYLENE GLYCOL (HEALTHYLAX) 3350 17 GM PACKET PO SCH (09:41)
[2022-10-02] MEDS ORDERED: PANTOPRAZOLE 40 MG TABLET PO SCH (10:00)
[2022-10-02 11:24] LABS: BLOOD UREA NITROGEN 7.8 mg/dL (7-18); CALCIUM 7.8 mg/dL (8.5-10.1)
[2022-10-02 11:25] LABS: ALBUMIN 2.2 g/dl (3.4-5.0)
[2022-10-02 11:26] LABS: BASO % 0.3 % (0-2.0); EOS % 0.6 % (0-4.5); HEMATOCRIT 26.8 % (32.4-45.2); HEMOGLOBIN 9.1 GM/dL (10.7-15.3); LYMPH % 12.9 % (8-40); MCH 33.3 pg (25.7-33.7); MCHC 33.8 g/dl (32.0-36.0); MEAN CELL VOLUME 98.4 fl (80-96); MEAN PLT VOLUME 7.2 fl (7.5-11.1); MONO % 9.2 % (3.8-10.2); PLATELET COUNT 228 10^3/uL (134-434); RBC 2.72 M/mm3 (3.60-5.2); RDW 15.1 % (11.6-15.6); WHITE BLOOD COUNT 5.6 K/mm3 (4.0-10.0)
[2022-10-02 11:28] LABS: CREATININE 0.5 mg/dL (0.55-1.3)
[2022-10-02 11:29] LABS: BILIRUBIN,TOTAL 0.7 mg/dL (0.2-1); TOT PROT 6.4 g/dl (6.4-8.2)
[2022-10-02] MEDS ORDERED: POTASSIUM CHLORIDE TABS 20 MEQ TABLET.ER (FP) PO ONE (11:30)
[2022-10-02 16:03] VITALS: BP 125/77; PULSE 86; TEMP 98.7
== END 2022-10-02 19:10 | disposition home health service (06) ==
LOC: JER 10:33 → JERBED 15:04 → UNDOADMOB 15:04 → INTOOBSV 15:04 → JERBED 16:04 → J4W 21:29 → OBSVTOIN 09-22 13:52 → J5S 09-24 23:34
PROVIDERS: ADMIT Internal Medicine; ATTEND Student in an Organized Health Care Education/Training Program
PROC: 0DB98ZX Excision of Duodenum, Via Natural or Artificial Opening Endoscopic, Diagnostic (ICD-10-PCS; 2022-09-25)
PROC: 0DJ08ZZ Inspection of Upper Intestinal Tract, Via Natural or Artificial Opening Endoscopic (ICD-10-PCS; principal; 2022-09-25 10:00)
PROC: 0DB78ZX Excision of Stomach, Pylorus, Via Natural or Artificial Opening Endoscopic, Diagnostic (ICD-10-PCS; 2022-09-30)
PROC: 0DB68ZX Excision of Stomach, Via Natural or Artificial Opening Endoscopic, Diagnostic (ICD-10-PCS; 2022-09-30)
PROC: 0DB58ZX Excision of Esophagus, Via Natural or Artificial Opening Endoscopic, Diagnostic (ICD-10-PCS; 2022-09-30)
PROC: 0DBH8ZX Excision of Cecum, Via Natural or Artificial Opening Endoscopic, Diagnostic (ICD-10-PCS; 2022-09-30)
PROC: 0DBN8ZX Excision of Sigmoid Colon, Via Natural or Artificial Opening Endoscopic, Diagnostic (ICD-10-PCS; 2022-09-30)
PROC: 0DBB8ZX Excision of Ileum, Via Natural or Artificial Opening Endoscopic, Diagnostic (ICD-10-PCS; 2022-09-30)
DX: K71.8 Toxic liver disease with other disorders of liver (principal); E03.9 Hypothyroidism, unspecified; L30.9 Dermatitis, unspecified; E87.3 Alkalosis; E87.6 Hypokalemia; K22.2 Esophageal obstruction; K64.8 Other hemorrhoids; N39.0 Urinary tract infection, site not specified; K76.0 Fatty (change of) liver, not elsewhere classified; E80.6 Other disorders of bilirubin metabolism; R11.2 Nausea with vomiting, unspecified; J45.909 Unspecified asthma, uncomplicated; R51.9 Headache, unspecified; R63.4 Abnormal weight loss; Z68.28 Body mass index [BMI] 28.0-28.9, adult; R16.0 Hepatomegaly, not elsewhere classified; G62.9 Polyneuropathy, unspecified; B96.20 Unspecified Escherichia coli [E. coli] as the cause of diseases classified elsewhere; K59.00 Constipation, unspecified; G56.03 Carpal tunnel syndrome, bilateral upper limbs; F39 Unspecified mood [affective] disorder; E66.9 Obesity, unspecified; E78.5 Hyperlipidemia, unspecified; F50.9 Eating disorder, unspecified; K21.9 Gastro-esophageal reflux disease without esophagitis; R79.89 Other specified abnormal findings of blood chemistry; T50.995A Adverse effect of other drugs, medicaments and biological substances, initial encounter; K44.9 Diaphragmatic hernia without obstruction or gangrene; K25.3 Acute gastric ulcer without hemorrhage or perforation; K29.60 Other gastritis without bleeding; K21.00 Gastro-esophageal reflux disease with esophagitis, without bleeding; Y92.89 Other specified places as the place of occurrence of the external cause
CPT/HCPCS: 0241U-QW; 36415; 71046-TC-FY; 74177-TC; 74183-TC; 76705-TC; 80048; 80053; 80061; 81003; 82248; 82272; 82310; 82550; 82607; 82728; 82746; 82784; 82977; 83036; 83516; 83520; 83540; 83550; 83735; 83970; 84100; 84132; 84155; 84156; 84165; 84166; 84207; 84255; 84439; 84443; 84481; 84484; 84630; 84703; 85025; 85027; 85610; 85730; 86038; 86140; 86225; 86235; 86256; 86704; 86708; 86803; 86850; 86900; 86901; 87040; 87086; 87186; 87340; 87517; 88305-TC; 93005; 93010; 93975; 97116-GP; 97162-GP; 99285-25; A9579; G0378; Q9967

== ENCOUNTER 2024-04-14 16:39 | Inpatient (IN) | payer OTHER ==
[2024-04-14 20:34] LABS: BASO % 0.7 % (0-2.0); EOS % 1.3 % (0-4.5); HEMATOCRIT 20.1 % (32.4-45.2); LYMPH % 12.9 % (8-40); MCH 34.6 pg (25.7-33.7); MCHC 33.7 g/dl (32.0-36.0); MEAN CELL VOLUME 102.6 fl (80-96); MEAN PLT VOLUME 7.5 fl (7.5-11.1); MONO % 9.8 % (3.8-10.2); NEUT % 75.3 % (42.8-82.8); PLATELET COUNT 125 10^3/uL (134-434); RBC 1.95 M/mm3 (3.60-5.2); RDW 16.7 % (11.6-15.6); WHITE BLOOD COUNT 6.1 K/mm3 (4.0-10.0)
[2024-04-14 20:37] LABS: HEMOGLOBIN 6.8 GM/dL (10.7-15.3)
[2024-04-14 20:51] LABS: INR 1.81 (0.83-1.09); PROTHROMBIN TIME (PATIENT) 20.1 SEC (9.7-13.0)
[2024-04-14 20:53] LABS: ACTIVATED PTT 43.6 SECONDS (25.2-36.5)
[2024-04-14 20:55] LABS: ALBUMIN 2.2 g/dl (3.4-5.0); BLOOD UREA NITROGEN 3.1 mg/dL (7-18); CO2 23 mmol/L (21-32); GLUCOSE,RANDOM 92 mg/dL (74-106)
[2024-04-14 20:58] LABS: CREATININE 0.6 mg/dL (0.55-1.3); SGOT/AST 104 U/L (15-37); SGPT/ALT 28 U/L (13-61)
[2024-04-14 20:59] LABS: BILIRUBIN,TOTAL 2.3 mg/dL (0.2-1)
[2024-04-14 21:00] LABS: TOT PROT 7.4 g/dl (6.4-8.2)
[2024-04-14 21:01] LABS: ALK PHOS 270 U/L (45-117)
[2024-04-14 21:42] LABS: ANION GAP 6 mmol/L (4-13); CALCIUM 6.7 mg/dL (8.5-10.1); CHLORIDE 110 mmol/L (98-107); POTASSIUM 3.9 mmol/L (3.5-5.1); SODIUM 139 mmol/L (136-145)
[2024-04-14 21:49] LABS: HIV INTERPRETATION NEGATIVE (NEGATIVE)
[2024-04-14 22:48] LABS: MAGNESIUM 2.1 mg/dL (1.8-2.4)
[2024-04-14 22:51] LABS: PHOSPHOROUS 2.8 mg/dL (2.5-4.9)
[2024-04-14] MEDS ORDERED: THIAMINE 100 MG TABLET ONE (23:13)
[2024-04-14] MEDS ORDERED: FOLIC ACID 1 MG TABLET (FP) ONE (23:14)
[2024-04-14] MEDS: THIAMINE 100 MG TABLET PO ONE (23:23)
[2024-04-14] MEDS: FOLIC ACID 1 MG TABLET (FP) PO ONE (23:23)
[2024-04-15] MEDS ORDERED: GABAPENTIN 300 MG CAPSULE ONE (00:13)
[2024-04-15] MEDS: GABAPENTIN 300 MG CAPSULE PO SCH (00:17)
[2024-04-15] MEDS ORDERED: LORazepam 0.5 MG TABLET PO PRN (01:02)
[2024-04-15 02:30] VITALS: BMI 31.4
[2024-04-15] MEDS: ACETAMINOPHEN 1000 MG/100 ML BAG IVPB PRN (02:32)
[2024-04-15 05:58] LABS: BILIRUBIN,DIRECT 1.8 mg/dL (0.0-0.2)
[2024-04-15] MEDS: CALCIUM CARBONATE 650 MG TABLET PO SCH (09:23)
[2024-04-15 11:17] LABS: BILIRUBIN,DIRECT 1.9 mg/dL (0.0-0.2)
[2024-04-15] MEDS: LIDOCAINE 5% TOPICAL PATCH TP SCH (12:33)
[2024-04-15] MEDS: NICOTINE 7 MG/24 HOURS TOPICAL PATCH TD SCH (12:34)
[2024-04-15] MEDS: BACLOFEN 10 MG TABLET (FP) PO ONE (13:20)
[2024-04-15 14:26] LABS: COCAINE, UR NEGATIVE (NEGATIVE); METHADONE, UR NEGATIVE (NEGATIVE); OPIATES, URI NEGATIVE (NEGATIVE); PHENCYCLIDINE,URINE NEGATIVE (NEGATIVE); URINE BARBITURATES NEGATIVE (NEGATIVE); URINE BENZODIAZEPINES NEGATIVE (NEGATIVE)
[2024-04-15 14:30] LABS: URINE AMPHETAMINES NEGATIVE (NEGATIVE)
[2024-04-15] MEDS: FOLIC ACID 1 MG TABLET (FP) PO SCH (16:25)
[2024-04-15] MEDS: LACTATED RINGERS SOLUTION 1,000 ML/1,000 ML INFUS.BAG IV SCH (16:32)
[2024-04-15] MEDS: THIAMINE HCL 200 MG/2 ML VIAL IVPB SCH ×2 (16:43→17:45)
[2024-04-15] MEDS: FOLIC ACID 5 MG/1 ML IVPB SCH (17:55)
[2024-04-15 18:35] LABS: HEMATOCRIT 24.7 % (32.4-45.2); HEMOGLOBIN 8.4 GM/dL (10.7-15.3); MCH 33.8 pg (25.7-33.7); MCHC 33.9 g/dl (32.0-36.0); MEAN CELL VOLUME 99.8 fl (80-96); MEAN PLT VOLUME 7.7 fl (7.5-11.1); PLATELET COUNT 113 10^3/uL (134-434); RBC 2.47 M/mm3 (3.60-5.2); RDW 19.3 % (11.6-15.6); WHITE BLOOD COUNT 5.5 K/mm3 (4.0-10.0)
[2024-04-15 19:15] LABS: POTASSIUM 3.5 mmol/L (3.5-5.1)
[2024-04-15 19:18] LABS: ALBUMIN 2.2 g/dl (3.4-5.0); BLOOD UREA NITROGEN 7.7 mg/dL (7-18)
[2024-04-15 19:21] LABS: CREATININE 0.7 mg/dL (0.55-1.3)
[2024-04-15 19:22] LABS: BILIRUBIN,TOTAL 3.7 mg/dL (0.2-1); TOT PROT 7.5 g/dl (6.4-8.2)
[2024-04-15 19:47] LABS: ANISOCYTOSIS 1+; MACROCYTOSIS 1+
[2024-04-15] MEDS: SIMETHICONE 80 MG TAB.CHEW (FP) PO PRN (22:45)
[2024-04-16] MEDS: LIDOCAINE PATCH REMOVAL MC SCH (01:24)
[2024-04-16 07:34] LABS: BASO % 0.7 % (0-2.0); HEMATOCRIT 24.2 % (32.4-45.2); HEMOGLOBIN 8.2 GM/dL (10.7-15.3); LYMPH % 14.9 % (8-40); MCH 34.9 pg (25.7-33.7); MCHC 34.1 g/dl (32.0-36.0); MEAN CELL VOLUME 102.3 fl (80-96); MEAN PLT VOLUME 7.9 fl (7.5-11.1); MONO % 11.8 % (3.8-10.2); NEUT % 71.6 % (42.8-82.8); PLATELET COUNT 108 10^3/uL (134-434); RBC 2.36 M/mm3 (3.60-5.2); WHITE BLOOD COUNT 5.1 K/mm3 (4.0-10.0)
[2024-04-16 07:43] LABS: POTASSIUM 3.6 mmol/L (3.5-5.1)
[2024-04-16 07:51] LABS: BILIRUBIN,TOTAL 3.5 mg/dL (0.2-1)
[2024-04-16 07:52] LABS: CREATININE 0.7 mg/dL (0.55-1.3); TOT PROT 7.3 g/dl (6.4-8.2)
[2024-04-16 07:53] LABS: BLOOD UREA NITROGEN 8.9 mg/dL (7-18); CALCIUM 7.4 mg/dL (8.5-10.1)
[2024-04-16 07:54] LABS: ALBUMIN 2.2 g/dl (3.4-5.0)
[2024-04-16] MEDS: LIOTHYRONINE SODIUM 5 MCG TABLET PO SCH (09:08)
[2024-04-16] MEDS: PANTOPRAZOLE 40 MG TABLET PO SCH (09:08)
[2024-04-16] MEDS: ALBUTEROL SO4 2.5/IPRATROPIUM 0.5 INH SOL 3 ML VIAL.NEB. NEB ONE (10:00)
[2024-04-16 10:46] LABS: MAGNESIUM 1.6 mg/dL (1.8-2.4)
[2024-04-16 10:51] LABS: PHOSPHOROUS 2.5 mg/dL (2.5-4.9)
[2024-04-16] MEDS: ERGOCALCIFEROL (VIT D2) 50,000 UNIT (1.25 MG) CAPSULE PO ONE (10:58)
[2024-04-16] MEDS: ALBUTEROL SO4 0.083% IH SOL 2.5 MG/3 ML VIAL.NEB. NEB PRN (11:27)
[2024-04-16 11:59] LABS: BILIRUBIN,DIRECT 2.3 mg/dL (0.0-0.2)
[2024-04-16] MEDS: GABAPENTIN 400 MG CAPSULE PO SCH (13:34)
[2024-04-16] MEDS: traMADol HCL 50 MG TABLET PO PRN (13:38)
[2024-04-16] MEDS: ARTIFICIAL TEARS OPHTHALMIC DROPS OU SCH (13:58)
[2024-04-16] MEDS: diphenhydrAMINE HCL 25 MG CAPSULE (FP) PO PRN (15:42)
[2024-04-16] MEDS: MINERAL OIL/PET HY-PHL TOPICAL OINTMENT 454 GM JAR TP SCH (18:05)
[2024-04-16] MEDS ORDERED: MINERAL OIL/PET HY-PHL TOPICAL OINTMENT 454 GM JAR TP SCH (19:00)
[2024-04-16] MEDS: URSODIOL 300 MG CAPSULE PO SCH (21:36)
[2024-04-17 09:59] LABS: BASO % 0.4 % (0-2.0); EOS % 1.2 % (0-4.5); HEMATOCRIT 25.9 % (32.4-45.2); HEMOGLOBIN 8.7 GM/dL (10.7-15.3); LYMPH % 11.5 % (8-40); MCH 34.5 pg (25.7-33.7); MCHC 33.7 g/dl (32.0-36.0); MEAN CELL VOLUME 102.2 fl (80-96); MEAN PLT VOLUME 8.1 fl (7.5-11.1); MONO % 12.9 % (3.8-10.2); PLATELET COUNT 110 10^3/uL (134-434); RBC 2.53 M/mm3 (3.60-5.2); WHITE BLOOD COUNT 7.2 K/mm3 (4.0-10.0)
[2024-04-17 10:37] LABS: POTASSIUM 3.7 mmol/L (3.5-5.1)
[2024-04-17 10:43] LABS: CALCIUM 7.5 mg/dL (8.5-10.1)
[2024-04-17 10:44] LABS: ALBUMIN 2.2 g/dl (3.4-5.0); BLOOD UREA NITROGEN 8.8 mg/dL (7-18)
[2024-04-17 10:47] LABS: CREATININE 0.7 mg/dL (0.55-1.3)
[2024-04-17 10:48] LABS: BILIRUBIN,TOTAL 3.9 mg/dL (0.2-1); TOT PROT 7.5 g/dl (6.4-8.2)
[2024-04-17] MEDS: ACETAMINOPHEN 325 MG TABLET (FP) PO ONE (15:28)
[2024-04-17] MEDS: CEFTRIAXONE 1 G/50 ML PREMIX 50 ML IVPB SCH (15:31)
[2024-04-17] MEDS: PIPERACILLIN/TAZOB 3.375 GM 3.375 GM in DEXTROSE 5%-WATER - 50 ML IVPB SCH (16:03)
[2024-04-17] MEDS: PIPERACILLIN/TAZOB 3.375 GM 50 ML IVPB SCH (17:47)
[2024-04-17] MEDS: BACLOFEN 10 MG TABLET (FP) PO ONE (17:55)
[2024-04-17] MEDS ORDERED: PIPERACILLIN/TAZOB 3.375 GM 50 ML IVPB SCH (18:00)
[2024-04-17] MEDS: ACETAMINOPHEN 325 MG TABLET (FP) PO PRN (21:44)
[2024-04-17] MEDS: MELATONIN 5 MG TABLETS PO PRN (21:44)
[2024-04-18 10:09] LABS: HEMATOCRIT 23.2 % (32.4-45.2); HEMOGLOBIN 7.8 GM/dL (10.7-15.3); MCH 34.8 pg (25.7-33.7); MCHC 33.6 g/dl (32.0-36.0); MEAN CELL VOLUME 103.5 fl (80-96); MEAN PLT VOLUME 8.1 fl (7.5-11.1); PLATELET COUNT 93 10^3/uL (134-434); RBC 2.24 M/mm3 (3.60-5.2); RDW 17.7 % (11.6-15.6); WHITE BLOOD COUNT 5.3 K/mm3 (4.0-10.0)
[2024-04-18 10:38] LABS: POTASSIUM 3.8 mmol/L (3.5-5.1)
[2024-04-18 10:42] LABS: MAGNESIUM 1.7 mg/dL (1.8-2.4)
[2024-04-18 10:43] LABS: ALBUMIN 2.1 g/dl (3.4-5.0); BLOOD UREA NITROGEN 10.3 mg/dL (7-18)
[2024-04-18 10:45] LABS: CREATININE 0.7 mg/dL (0.55-1.3)
[2024-04-18 10:46] LABS: PHOSPHOROUS 2.8 mg/dL (2.5-4.9)
[2024-04-18 10:48] LABS: BILIRUBIN,TOTAL 3.2 mg/dL (0.2-1)
[2024-04-18] MEDS: THIAMINE HCL 200 MG/2 ML VIAL IVPB SCH (11:07)
[2024-04-18] MEDS: MAGNESIUM 2GM/50ML STERILE WATER IVPB IVPB ONE (12:43)
[2024-04-18] MEDS ORDERED: ETOMIDATE 20 MG/10 ML VIAL IVPUSH ONE (14:21)
[2024-04-18] MEDS ORDERED: PHENYLEPHRINE HCL 10 MG/1 ML SINGLE DOSE VIAL ONE (14:22)
[2024-04-18] MEDS ORDERED: SUGAMMADEX SODIUM 200 MG/2 ML VIAL ONE (14:46)
[2024-04-18 18:07] LABS: FREE KAPPA,SERUM 100.2 mg/L (3.3-19.4)
[2024-04-18 19:00] LABS: EPI CELLS >36 /uL (0-25.1); HYALINE CASTS 1 /uL (0-3.1); PH,URINE 5.5 (5.0-8.0); URINE APPEARANCE CLOUDY; URINE BACTERIA 71 /uL (0-1359); URINE BILIRUBIN 1+ (NEGATIVE); URINE COLOR DK YELLOW; URINE GLUCOSE (UA) NEGATIVE (NEGATIVE); URINE KETONE TRACE (NEGATIVE); URINE LEUK ESTERASE 2+ (NEGATIVE); URINE NITRITE NEGATIVE (NEGATIVE); URINE PROTEIN TRACE (NEGATIVE); URINE RBC 19 /uL (0-23.9); URINE WBC 169 /uL (0-25.8)
[2024-04-18] MEDS: ERGOCALCIFEROL (VIT D2) 50,000 UNIT (1.25 MG) CAPSULE PO ONE (22:00)
[2024-04-18] MEDS: INDOMETHACIN 50 MG RECTAL SUPPOSITORY PR ONE (23:44)
[2024-04-19 09:19] LABS: HEMATOCRIT 23.3 % (32.4-45.2); HEMOGLOBIN 7.8 GM/dL (10.7-15.3); MCHC 33.4 g/dl (32.0-36.0); MEAN CELL VOLUME 101.7 fl (80-96); MEAN PLT VOLUME 7.9 fl (7.5-11.1); PLATELET COUNT 97 10^3/uL (134-434); RBC 2.29 M/mm3 (3.60-5.2); WHITE BLOOD COUNT 5.7 K/mm3 (4.0-10.0)
[2024-04-19 09:47] LABS: ALBUMIN 2.2 g/dl (3.4-5.0)
[2024-04-19 09:48] LABS: BLOOD UREA NITROGEN 13.5 mg/dL (7-18)
[2024-04-19 09:53] LABS: CALCIUM 7.8 mg/dL (8.5-10.1)
[2024-04-19 09:55] LABS: CREATININE 0.8 mg/dL (0.55-1.3)
[2024-04-19 09:56] LABS: BILIRUBIN,TOTAL 2.1 mg/dL (0.2-1); TOT PROT 7.4 g/dl (6.4-8.2)
[2024-04-19] MEDS: FOLIC ACID 5 MG/1 ML IVPUSH SCH (11:38)
[2024-04-19] MEDS: SIMETHICONE 80 MG TAB.CHEW (FP) PO PRN (22:24)
[2024-04-19] MEDS: POLYETHYLENE GLYCOL (HEALTHYLAX) 3350 17 GM PACKET PO SCH (22:24)
[2024-04-20] MEDS ORDERED: COSYNTROPIN 0.25 MG VIAL IVPUSH ONE (06:00)
[2024-04-20] MEDS: COSYNTROPIN 0.25 MG VIAL IVPUSH ONE (08:00)
[2024-04-20 08:13] LABS: HEMATOCRIT 25.8 % (32.4-45.2); HEMOGLOBIN 8.3 GM/dL (10.7-15.3); MCH 33.3 pg (25.7-33.7); MCHC 32.4 g/dl (32.0-36.0); MEAN CELL VOLUME 102.9 fl (80-96); MEAN PLT VOLUME 8.2 fl (7.5-11.1); PLATELET COUNT 136 10^3/uL (134-434); RBC 2.51 M/mm3 (3.60-5.2); RDW 18.7 % (11.6-15.6); WHITE BLOOD COUNT 7.9 K/mm3 (4.0-10.0)
[2024-04-20 08:39] LABS: ALBUMIN 2.4 g/dl (3.4-5.0); BLOOD UREA NITROGEN 22.3 mg/dL (7-18); CALCIUM 7.9 mg/dL (8.5-10.1)
[2024-04-20 08:44] LABS: CREATININE 1.1 mg/dL (0.55-1.3)
[2024-04-20] MEDS: BISACODYL 10 MG SUPP.RECT PR ONE (12:52)
[2024-04-20] MEDS: LIPASE/PROTEASE/AMYLASE 6,000 UNIT CAPSULE PO SCH (12:52)
[2024-04-20] MEDS: POLYETHYLENE GLYCOL (HEALTHYLAX) 3350 17 GM PACKET PO SCH (13:42)
[2024-04-21 05:58] VITALS: RESP 18
[2024-04-21 09:27] LABS: HEMATOCRIT 23.5 % (32.4-45.2); HEMOGLOBIN 7.9 GM/dL (10.7-15.3); MCH 34.6 pg (25.7-33.7); MCHC 33.4 g/dl (32.0-36.0); MEAN CELL VOLUME 103.4 fl (80-96); MEAN PLT VOLUME 7.6 fl (7.5-11.1); PLATELET COUNT 129 10^3/uL (134-434); RBC 2.28 M/mm3 (3.60-5.2); RDW 17.8 % (11.6-15.6); WHITE BLOOD COUNT 6.3 K/mm3 (4.0-10.0)
[2024-04-21 09:29] LABS: INR 1.56 (0.83-1.09); PROTHROMBIN TIME (PATIENT) 17.7 SEC (9.7-13.0)
[2024-04-21 09:45] LABS: POTASSIUM 4.3 mmol/L (3.5-5.1)
[2024-04-21 09:53] LABS: CALCIUM 7.8 mg/dL (8.5-10.1)
[2024-04-21 09:54] LABS: ALBUMIN 2.3 g/dl (3.4-5.0); BLOOD UREA NITROGEN 26.9 mg/dL (7-18)
[2024-04-21 09:57] LABS: BILIRUBIN,TOTAL 1.8 mg/dL (0.2-1); TOT PROT 7.5 g/dl (6.4-8.2)
[2024-04-21] MEDS: predniSONE 10 MG TABLET (UD) PO ONE (14:30)
[2024-04-21] MEDS ORDERED: ALBUTEROL SO4 2.5/IPRATROPIUM 0.5 INH SOL 3 ML VIAL.NEB. NEB PRN (16:05)
[2024-04-21] MEDS: ZINC SULFATE 220 MG CAPSULE (FP) PO SCH (17:36)
[2024-04-21] MEDS: FLUDROCORTISONE ACETATE 0.1 MG TABLET (FP) PO SCH (21:18)
[2024-04-21] MEDS: SENNOSIDES 8.6MG TABLET (FP) PO SCH (21:18)
[2024-04-21] MEDS ORDERED: FLUDROCORTISONE ACETATE 0.1 MG TABLET (FP) PO SCH (22:00)
[2024-04-22] MEDS: predniSONE 10 MG TABLET (UD) PO SCH (09:52)
[2024-04-22] MEDS: FUROSEMIDE 20 MG TABLET (FP) PO SCH (12:00)
[2024-04-22] MEDS: SPIRONOLACTONE 25 MG TABLET PO SCH (12:00)
[2024-04-23] MEDS: ACETAMINOPHEN 325 MG TABLET (FP) PO ONE (05:18)
[2024-04-23 08:56] LABS: EOS % 2.2 % (0-4.5); HEMATOCRIT 23.6 % (32.4-45.2); HEMOGLOBIN 7.9 GM/dL (10.7-15.3); LYMPH % 15.4 % (8-40); MCH 34.5 pg (25.7-33.7); MCHC 33.6 g/dl (32.0-36.0); MEAN CELL VOLUME 102.6 fl (80-96); MEAN PLT VOLUME 7.5 fl (7.5-11.1); MONO % 9.9 % (3.8-10.2); NEUT % 71.5 % (42.8-82.8); PLATELET COUNT 121 10^3/uL (134-434); RDW 17.6 % (11.6-15.6); WHITE BLOOD COUNT 7.7 K/mm3 (4.0-10.0)
[2024-04-23 09:13] LABS: POTASSIUM 4.1 mmol/L (3.5-5.1)
[2024-04-23 09:15] LABS: CALCIUM 8.2 mg/dL (8.5-10.1)
[2024-04-23 09:16] LABS: ALBUMIN 2.3 g/dl (3.4-5.0); MAGNESIUM 1.8 mg/dL (1.8-2.4)
[2024-04-23 09:19] LABS: CREATININE 0.9 mg/dL (0.55-1.3)
[2024-04-23 09:20] LABS: BILIRUBIN,TOTAL 1.9 mg/dL (0.2-1)
[2024-04-23 09:21] LABS: TOT PROT 7.4 g/dl (6.4-8.2)
[2024-04-23] MEDS: oxyCODONE HCL 5 MG TABLET PO ONE (11:17)
[2024-04-23] MEDS ORDERED: ALBUTEROL SO4 HFA INHALER IH PRN (11:28)
[2024-04-23] MEDS: SPIRONOLACTONE 25 MG TABLET PO ONE (11:33)
[2024-04-23] MEDS: FUROSEMIDE 20 MG TABLET (FP) PO ONE (11:33)
[2024-04-23] MEDS ORDERED: SPIRONOLACTONE 25 MG TABLET PO SCH (11:52)
[2024-04-23] MEDS ORDERED: FUROSEMIDE 40 MG TABLET (FP) PO SCH (11:52)
[2024-04-23 13:28] VITALS: TEMP 98.6
[2024-04-23 14:22] VITALS: BP 125/74; PULSE 95
== END 2024-04-23 19:22 | disposition home or self-care (01) | DRG 663 ==
LOC: JER 16:39 → JERBED 22:04 → J6S 04-15 01:49 → OBSVTOIN 04-15 17:33 → J6S 04-18 08:37
PROVIDERS: ADMIT Internal Medicine; ATTEND Internal Medicine
PROC: 30233N1 Transfusion of Nonautologous Red Blood Cells into Peripheral Vein, Percutaneous Approach (ICD-10-PCS; 2024-04-15)
PROC: 0DJ08ZZ Inspection of Upper Intestinal Tract, Via Natural or Artificial Opening Endoscopic (ICD-10-PCS; principal; 2024-04-18 13:00)
DX: D52.0 Dietary folate deficiency anemia (principal); K76.6 Portal hypertension; K85.90 Acute pancreatitis without necrosis or infection, unspecified; D69.6 Thrombocytopenia, unspecified; G62.1 Alcoholic polyneuropathy; N25.81 Secondary hyperparathyroidism of renal origin; E27.40 Unspecified adrenocortical insufficiency; K83.8 Other specified diseases of biliary tract; E83.51 Hypocalcemia; R16.0 Hepatomegaly, not elsewhere classified; M79.7 Fibromyalgia; K31.89 Other diseases of stomach and duodenum; K21.9 Gastro-esophageal reflux disease without esophagitis; J45.909 Unspecified asthma, uncomplicated; E03.9 Hypothyroidism, unspecified; D75.89 Other specified diseases of blood and blood-forming organs; K70.30 Alcoholic cirrhosis of liver without ascites; N92.0 Excessive and frequent menstruation with regular cycle; K76.0 Fatty (change of) liver, not elsewhere classified; L29.9 Pruritus, unspecified; R79.89 Other specified abnormal findings of blood chemistry; H00.016 Hordeolum externum left eye, unspecified eyelid; K80.20 Calculus of gallbladder without cholecystitis without obstruction; L30.9 Dermatitis, unspecified; K59.00 Constipation, unspecified; D53.9 Nutritional anemia, unspecified; Z71.6 Tobacco abuse counseling; F17.219 Nicotine dependence, cigarettes, with unspecified nicotine-induced disorders; F10.10 Alcohol abuse, uncomplicated
CPT/HCPCS: 0241U-QW; 36415; 36430; 70551-TC; 71045-TC-FY; 71250-TC; 72100-TC-FY; 73502-TC-LT-FY; 74176-TC; 74181-TC; 76705-TC; 78226-TC; 80053; 80061; 80307; 81003; 82024; 82140; 82248; 82272; 82306; 82525; 82533; 82607; 82728; 82746; 82747; 82962; 83540; 83550; 83615; 83735; 83825; 83883; 83970; 84100; 84155; 84165; 84439; 84443; 84630; 84703; 85014; 85025; 85027; 85045; 85610; 85730; 86160; 86225; 86235; 86376; 86705; 86709; 86800; 86803; 86850; 86880; 86900; 86901; 86922; 87040; 87070; 87086; 87205; 87340; 87389; 93005; 93010; 93306-TC; 94640; 99285-25; A9537; G0378; J0131; J0475; J0834; P9058

== ENCOUNTER 2024-08-23 20:25 | Observation (INO) | payer OTHER ==
[2024-08-23 21:05] VITALS: BMI 32.8
[2024-08-23 23:20] LABS: BASO % 0.5 % (0-2.0); EOS % 1.5 % (0-4.5); HEMATOCRIT 18.8 % (32.4-45.2); LYMPH % 14.1 % (8-40); MCH 24.4 pg (25.7-33.7); MCHC 31.3 g/dl (32.0-36.0); MEAN CELL VOLUME 77.8 fl (80-96); MEAN PLT VOLUME 7.1 fl (7.5-11.1); MONO % 13.2 % (3.8-10.2); NEUT % 70.7 % (42.8-82.8); PLATELET COUNT 164 10^3/uL (134-434); RBC 2.42 M/mm3 (3.60-5.2); RDW 20.8 % (11.6-15.6); WHITE BLOOD COUNT 8.6 K/mm3 (4.0-10.0)
[2024-08-23 23:24] LABS: HEMOGLOBIN 5.9 GM/dL (10.7-15.3)
[2024-08-23 23:29] LABS: INR 1.73 (0.83-1.09)
[2024-08-23 23:31] LABS: ACTIVATED PTT 31.7 SECONDS (25.2-36.5)
[2024-08-23 23:42] LABS: POTASSIUM 3.7 mmol/L (3.5-5.1)
[2024-08-23 23:43] LABS: CALCIUM 8.6 mg/dL (8.5-10.1)
[2024-08-23 23:44] LABS: BLOOD UREA NITROGEN 30.5 mg/dL (7-18)
[2024-08-23 23:47] LABS: CREATININE 1.2 mg/dL (0.55-1.3)
[2024-08-23 23:49] LABS: BILIRUBIN,TOTAL 2.5 mg/dL (0.2-1); TOT PROT 6.8 g/dl (6.4-8.2)
[2024-08-24 00:43] LABS: HIV INTERPRETATION NEGATIVE (NEGATIVE)
[2024-08-24 00:57] LABS: ANISOCYTOSIS 2+; MACROCYTOSIS 0
[2024-08-24] MEDS ORDERED: MORPHINE SULFATE 2 MG/ML SYRINGE IVPUSH PRN (01:15)
[2024-08-24] MEDS ORDERED: hydrOXYzine PAMOATE 25 MG CAPSULE (FP) PO ONE (04:58)
[2024-08-24] MEDS: hydrOXYzine PAMOATE 50 MG CAPSULE (FP) PO PRN (04:59)
[2024-08-24] MEDS: diphenhydrAMINE HCL 25 MG CAPSULE (FP) PO ONE (05:00)
[2024-08-24] MEDS ORDERED: ALBUTEROL SO4 2.5/IPRATROPIUM 0.5 INH SOL 3 ML VIAL.NEB. NEB PRN (08:00)
[2024-08-24] MEDS: LACTATED RINGERS SOLUTION 1,000 ML/1,000 ML INFUS.BAG IV SCH (09:00)
[2024-08-24] MEDS: PANTOPRAZOLE 40 MG TABLET PO SCH (09:04)
[2024-08-24] MEDS: LIOTHYRONINE SODIUM 5 MCG TABLET PO SCH (09:04)
[2024-08-24] MEDS: FUROSEMIDE 40 MG TABLET (FP) PO SCH (09:04)
[2024-08-24] MEDS: predniSONE 10 MG TABLET (UD) PO SCH (09:04)
[2024-08-24] MEDS: HYDROmorphone HCL CARPU-JECT 2 MG/1 ML DISP.SYRIN IVPUSH PRN (09:06)
[2024-08-24] MEDS ORDERED: ALBUTEROL SO4 HFA INHALER IH PRN (10:00)
[2024-08-24 11:09] LABS: HEMATOCRIT 20.2 % (32.4-45.2); MCH 24.8 pg (25.7-33.7); MCHC 31.7 g/dl (32.0-36.0); MEAN CELL VOLUME 78.3 fl (80-96); MEAN PLT VOLUME 7.3 fl (7.5-11.1); PLATELET COUNT 156 10^3/uL (134-434); RBC 2.58 M/mm3 (3.60-5.2); RDW 20.5 % (11.6-15.6); RETICULOCYTES 2.92 % (0.5-1.5); WHITE BLOOD COUNT 7.3 K/mm3 (4.0-10.0)
[2024-08-24 11:18] LABS: HEMOGLOBIN 6.4 GM/dL (10.7-15.3)
[2024-08-24 11:29] LABS: POTASSIUM 4.1 mmol/L (3.5-5.1)
[2024-08-24 11:34] LABS: ALBUMIN 2.8 g/dl (3.4-5.0); BLOOD UREA NITROGEN 29.1 mg/dL (7-18); CALCIUM 8.2 mg/dL (8.5-10.1)
[2024-08-24 11:39] LABS: BILIRUBIN,TOTAL 3.9 mg/dL (0.2-1); TOT PROT 6.4 g/dl (6.4-8.2)
[2024-08-24 13:34] LABS: COCAINE, UR NEGATIVE (NEGATIVE); URINE BARBITURATES NEGATIVE (NEGATIVE); URINE BENZODIAZEPINES NEGATIVE (NEGATIVE)
[2024-08-24 13:35] LABS: METHADONE, UR NEGATIVE (NEGATIVE); PHENCYCLIDINE,URINE NEGATIVE (NEGATIVE)
[2024-08-24 13:38] LABS: OPIATES, URI POSITIVE (NEGATIVE); URINE AMPHETAMINES NEGATIVE (NEGATIVE)
[2024-08-24] MEDS: hydrOXYzine PAMOATE 25 MG CAPSULE (FP) PO PRN (13:43)
[2024-08-24] MEDS: SIMETHICONE 80 MG TAB.CHEW (FP) PO PRN (13:45)
[2024-08-24 16:55] LABS: BASO % 0.6 % (0-2.0); HEMATOCRIT 23.9 % (32.4-45.2); HEMOGLOBIN 7.6 GM/dL (10.7-15.3); LYMPH % 6.1 % (8-40); MCH 25.2 pg (25.7-33.7); MCHC 31.7 g/dl (32.0-36.0); MEAN CELL VOLUME 79.4 fl (80-96); MEAN PLT VOLUME 7.1 fl (7.5-11.1); MONO % 9.8 % (3.8-10.2); NEUT % 82.5 % (42.8-82.8); PLATELET COUNT 149 10^3/uL (134-434); RDW 19.5 % (11.6-15.6); WHITE BLOOD COUNT 6.4 K/mm3 (4.0-10.0)
[2024-08-24] MEDS: IRON SUCROSE INJECTION 200 MG in SODIUM CHLORIDE 100 ML IVPB ONE (18:09)
[2024-08-24] MEDS: IRON SUCROSE INJECTION 100 MG in SODIUM CHLORIDE 95 ML IVPB ONE (19:37)
[2024-08-24] MEDS: FLUDROCORTISONE ACETATE 0.1 MG TABLET (FP) PO SCH (22:50)
[2024-08-25 06:52] VITALS: RESP 18
[2024-08-25 08:29] LABS: BASO % 0.5 % (0-2.0); EOS % 1.9 % (0-4.5); HEMATOCRIT 23.4 % (32.4-45.2); HEMOGLOBIN 7.5 GM/dL (10.7-15.3); LYMPH % 13.8 % (8-40); MCH 25.7 pg (25.7-33.7); MCHC 32.2 g/dl (32.0-36.0); MEAN CELL VOLUME 79.8 fl (80-96); MEAN PLT VOLUME 7.2 fl (7.5-11.1); MONO % 12.9 % (3.8-10.2); NEUT % 70.9 % (42.8-82.8); PLATELET COUNT 160 10^3/uL (134-434); RBC 2.93 M/mm3 (3.60-5.2); RDW 19.6 % (11.6-15.6); WHITE BLOOD COUNT 7.4 K/mm3 (4.0-10.0)
[2024-08-25 08:50] LABS: CALCIUM 8.4 mg/dL (8.5-10.1)
[2024-08-25 08:51] LABS: BLOOD UREA NITROGEN 34.2 mg/dL (7-18); MAGNESIUM 1.9 mg/dL (1.8-2.4)
[2024-08-25 08:54] LABS: CREATININE 1.2 mg/dL (0.55-1.3); PHOSPHOROUS 4.4 mg/dL (2.5-4.9)
[2024-08-25 08:55] LABS: BILIRUBIN,TOTAL 3.8 mg/dL (0.2-1); TOT PROT 7.2 g/dl (6.4-8.2)
[2024-08-25] MEDS: IRON SUCROSE INJECTION 200 MG in SODIUM CHLORIDE 100 ML IVPB ONE (10:25)
[2024-08-25] MEDS: GABAPENTIN 300 MG CAPSULE PO SCH (12:06)
[2024-08-25] MEDS: ACETAMINOPHEN 500 MG TABLET (FP) PO ONE (13:17)
[2024-08-25] MEDS: diphenhydrAMINE HCL 25 MG CAPSULE (FP) PO ONE (13:33)
[2024-08-25 16:31] VITALS: BP 99/56; PULSE 94; TEMP 98.4
[2024-08-25] MEDS: GABAPENTIN 300 MG CAPSULE PO ONE (18:05)
== END 2024-08-25 18:28 | disposition home or self-care (01) ==
LOC: JER 20:25 → JERBED 08-24 00:32 → J7W 08-24 02:44
PROVIDERS: ADMIT Student in an Organized Health Care Education/Training Program
PROC: 30233N1 Transfusion of Nonautologous Red Blood Cells into Peripheral Vein, Percutaneous Approach (ICD-10-PCS; principal; 2024-08-24)
PROC: 3E033NZ Introduction of Analgesics, Hypnotics, Sedatives into Peripheral Vein, Percutaneous Approach (ICD-10-PCS; 2024-08-24)
PROC: 3E0337Z Introduction of Electrolytic and Water Balance Substance into Peripheral Vein, Percutaneous Approach (ICD-10-PCS; 2024-08-24)
DX: R71.0 Precipitous drop in hematocrit (principal); K70.30 Alcoholic cirrhosis of liver without ascites; K27.9 Peptic ulcer, site unspecified, unspecified as acute or chronic, without hemorrhage or perforation; E27.40 Unspecified adrenocortical insufficiency; E03.9 Hypothyroidism, unspecified; M79.7 Fibromyalgia; L30.9 Dermatitis, unspecified; E21.3 Hyperparathyroidism, unspecified; J45.909 Unspecified asthma, uncomplicated; Z91.013 Allergy to seafood; Z88.8 Allergy status to other drugs, medicaments and biological substances; Z91.011 Allergy to milk products
CPT/HCPCS: 36415; 36430; 76705-TC; 76830-TC; 80053; 80307; 82248; 82272; 82533; 82607; 82728; 82746; 83540; 83550; 83735; 84100; 85025; 85027; 85045; 85610; 85730; 86803; 86850; 86900; 86901; 86922; 87389; 96361; 96374; 96375; 96376; 99285-25; G0378; J1756; P9038; P9058